=== PATIENT | female | born 1980 | race Caucasian/White ===

== ENCOUNTER 2017-01-30 10:08 | Emergency (ER) | payer OTHER ==
[2017-01-30 10:19] VITALS: RESP 18
[2017-01-30] MEDS ORDERED: SODIUM CHLORIDE 0.9% 1,000 ML IV STA (10:29)
[2017-01-30] MEDS ORDERED: METOCLOPRAMIDE 5 MG/ML 2 ML VIAL IVP STA (10:29)
[2017-01-30] MEDS ORDERED: MECLIZINE 12.5 MG TAB PO STA (10:30)
--- NOTE | 2017-01-30 10:33 | ED ---
Dizziness HPI - General Chief Complaint: Dizziness Stated Complaint: dizzy-19 wks preg Time Seen by Provider: 01/30/17 10:22 Source: patient, RN notes reviewed Mode of arrival: ambulatory Limitations: no limitations - History of Present Illness Initial Comments: 36-year-old female presents to the emergency department with a chief complaint of dizziness. Patient states since Sunday she's had this dizziness. Patient states it almost feels as if she is drunk. Patient states just a focus to concentrate on things in order for them not to be moving in her line of vision. Patient states that certain movements will make it worse. Patient states that she breasts somewhat improves but she starting getting so tired of all the focusing she has to do to make her symptoms better. Patient states there is no falls traumas or injuries. Patient denies any history of this in the past. Patient is 19 weeks . Patient states that she was concerned due to the continued dizziness so she thought that she should be evaluated.Patient denies any recent fever, chills, shortness of breath, chest pain, back pain, abdominal pain, nausea vomiting, numbness or tingling, dysuria or hematuria, constipation or diarrhea, headaches or visual changes, or any other current symptoms. - Related Data Home Medications Medication Instructions Recorded Confirmed Aspirin EC [Ecotrin Low Dose] 81 mg PO DAILY 01/30/17 01/30/17 Methyldopa 500 mg PO BID 01/30/17 01/30/17 Multi Chew No Iodine 2 tab PO DAILY 01/30/17 01/30/17 Previous Rx's Medication Instructions Recorded Meclizine [Antivert] 12.5 mg PO Q6H #20 tablet 01/30/17 Allergies Allergy/AdvReac Type Severity Reaction Status Date / Time amoxicillin [From Augmentin] Allergy Unknown Verified 01/30/17 10:30 clavulanic acid Allergy Unknown Verified 01/30/17 10:30 [From Augmentin] fish oil Allergy Unknown Verified 01/30/17 10:30 iodine Allergy Unknown Verified 01/30/17 10:30 povidone-iodine Allergy Unknown Verified 01/30/17 10:30 [From Betadine] shellfish derived [Shellfish] Allergy Unknown Verified 01/30/17 10:30 soap [From Betadine] Allergy Unknown Verified 01/30/17 10:30 Review of Systems ROS Statement: Those systems with pertinent positive or pertinent negative responses have been documented in the HPI. ROS Other: All systems not noted in ROS Statement are negative. Past Medical History Additional Past Medical History / Comment(s): HTN WITH History of Any Multi-Drug Resistant Organisms: None Reported Past Surgical History: Cholecystectomy Additional Past Surgical History / Comment(s): ORAL SURGERY, LAPROSCOPIC CYSTS REMOVAL FROM OVARIES Smoking Status: Never smoker Past Alcohol Use History: None Reported Past Drug Use History: None Reported General Exam - General Exam Comments Initial Comments: General: The patient is awake and alert, in no distress, and does not appear acutely ill. Eye: Pupils are equal, round and reactive to light, extra-ocular movements are intact; there is normal conjunctiva bilaterally. No signs of icterus. Ears, nose, mouth and throat: There are moist mucous membranes and no oral lesions. Neck: The neck is supple, there is no tenderness. Cardiovascular: There is a regular rate and rhythm. No murmur, rub or gallop is appreciated. Respiratory: Lungs are clear to auscultation, respirations are non-labored, breath sounds are equal. No wheezes, stridor, rales, or rhonchi. Gastrointestinal: Soft, non-distended, non-tender abdomen without masses or organomegaly noted. There is no rebound or guarding present. No CVA tenderness. Bowel sounds are unremarkable. Back: There is no tenderness to palpation in the midline. There is no obvious deformity. No rashes noted. Musculoskeletal: Normal ROM, no tenderness, There is no pedal edema. There is no calf tenderness or swelling. Sensation intact. Pulses equal bilaterally 2+. Neurological: CN II-XII intact, There are no obvious motor or sensory deficits. Coordination appears grossly intact. Speech is normal. No ataxia, normal [id number], left Skin: Skin is warm and dry and no rashes or lesions are noted. Psychiatric: Cooperative, appropriate mood & affect, normal judgment. Limitations: no limitations Course Vital Signs 01/30/17 01/30/17 10:14 12:00 Temperature 97.4 F L Pulse Rate 93 83 Respiratory 18 18 Rate Blood Pressure 135/92 157/90 O2 Sat by Pulse 98 99 Oximetry Medical Decision Making - Medical Decision Making 36 bills male presents emergency Department what appears to be vertigo. At this time patient was given fluids and Antivert and has had improvement in his symptoms. heart tones are monitored and normal. At this time we did discuss that we will patient and her home which is category B. We discussed close follow-up with [employer] and return parameters. We discussed all the patient 's questions. She stated that she understood and she is in agreement with the plan. Stent she will be discharged home. - Lab Data Result diagrams: 01/30/17 10:45 01/30/17 10:45 Lab Results 01/30/17 01/30/17 01/30/17 Range/Units 10:45 10:45 11:55 WBC 10.4 (3.8-10.6) k/uL RBC 4.03 (3.80-5.40) m/uL Hgb 12.8 (11.4-16.0) gm/dL Hct 36.0 (34.0-46.0) % MCV 89.5 (80.0-100.0) fL MCH 31.7 (25.0-35.0) pg MCHC 35.5 (31.0-37.0) g/dL RDW 13.7 (11.5-15.5) % Plt Count 209 (150-450) k/uL Neutrophils % 79 % Lymphocytes % 13 % Monocytes % 5 % Eosinophils % 1 % Basophils % 0 % Neutrophils # 8.2 H (1.3-7.7) k/uL Lymphocytes # 1.4 (1.0-4.8) k/uL Monocytes # 0.5 (0-1.0) k/uL Eosinophils # 0.1 (0-0.7) k/uL Basophils # 0.0 (0-0.2) k/uL Sodium 137 (137-145) mmol/L Potassium 3.9 (3.5-5.1) mmol/L Chloride 105 (98-107) mmol/L Carbon Dioxide 21 L (22-30) mmol/L Anion Gap 11 mmol/L BUN 8 (7-17) mg/dL Creatinine 0.42 L (0.52-1.04) mg/dL Est GFR (MDRD) Af Amer >60 (>60 ml/min/1.73 sqM) Est GFR (MDRD) Non-Af >60 (>60 ml/min/1.73 sqM) Glucose 84 (74-99) mg/dL Calcium 9.8 (8.4-10.2) mg/dL Total Bilirubin 0.4 (0.2-1.3) mg/dL AST 34 (14-36) U/L ALT 42 (9-52) U/L Alkaline Phosphatase 56 (38-126) U/L Total Protein 7.0 (6.3-8.2) g/dL Albumin 3.8 (3.5-5.0) g/dL Urine Color Yellow Urine Appearance Cloudy H (Clear) Urine pH 5.5 (5.0-8.0) Ur Specific [place] 1.020 (1.001-1.035) Urine Protein Trace H (Negative) Urine Glucose (UA) Negative (Negative) Urine Ketones 1+ H (Negative) Urine Blood Negative (Negative) Urine Nitrite Negative (Negative) Urine Bilirubin Negative (Negative) Urine Urobilinogen <2.0 (<2.0) mg/dL Ur Leukocyte Esterase Large H (Negative) Urine WBC 32 H (0-5) /hpf Ur Squamous Epith Cells 13 H (0-4) /hpf Urine Bacteria Rare H (None) /hpf Urine Mucus Occasional H (None) /hpf Disposition Clinical Impression: Vertigo Disposition: HOME SELF-CARE Condition: Stable Instructions: Vertigo (ED) Additional Instructions: Please use medication as discussed. Please follow up with family doctor if symptoms have not improved over the next two days. Please return to the emergency room if your symptoms increase or worsen or for any other concerns. Prescriptions: Meclizine [Antivert] 12.5 mg PO Q6H #20 tablet Referrals: Jose Paredes DO [Primary Care Provider] - 1-2 days Time of Disposition: 12:37
[2017-01-30 11:14] LABS: Basophils % (A) 0 %; CH 31.4; CHCM 35.3; Eosinophils # (A) 0.1 k/uL (0-0.7); Eosinophils % (A) 1 %; HDW 3.02; HGB 12.8 gm/dL (11.4-16.0); Luc # (Auto) 0.17; Luc % (Auto) 2; Lymphocytes # (A) 1.4 k/uL (1.0-4.8); Lymphocytes % (A) 13 %; MCH 31.7 pg (25.0-35.0); MCHC 35.5 g/dL (31.0-37.0); MCV 89.5 fL (80.0-100.0); Mean Platelet Volume 7.7; Monocytes # (A) 0.5 k/uL (0-1.0); Monocytes % (A) 5 %; Neutrophils # (A) 8.2 k/uL (1.3-7.7); Neutrophils % (A) 79 %; RBC 4.03 m/uL (3.80-5.40); RDW 13.7 % (11.5-15.5); WBC 10.4 k/uL (3.8-10.6); WBC (Perox) 10.78
[2017-01-30 11:29] LABS: ALT 42 U/L (9-52); AST 34 U/L (14-36); Alkaline Phosphatase 56 U/L (38-126); Anion Gap 11 mmol/L; Blood Urea Nitrogen 8 mg/dL (7-17); Calcium 9.8 mg/dL (8.4-10.2); Carbon Dioxide 21 mmol/L (22-30); Chloride 105 mmol/L (98-107); Glucose 84 mg/dL (74-99); Non-African American GFR(MDRD) >60 (>60 ml/min/1.73 sqM); Potassium 3.9 mmol/L (3.5-5.1); Sodium 137 mmol/L (137-145); Total Bilirubin 0.4 mg/dL (0.2-1.3)
[2017-01-30 12:29] LABS: Appearance,Urine Cloudy (Clear); Bacteria,Urine Rare /hpf; Bilirubin,Urine Negative (Negative); Glucose,Urine (UA) Negative (Negative); Ketones,Urine 1+ (Negative); Leukocyte Esterase,Urine Large (Negative); Mucus,Urine Occasional /hpf; Nitrite,Urine Negative (Negative); PH, Urine 5.5 (5.0-8.0); Particle Count 16042; Protein,Urine Trace (Negative); Squamous Epithelial Cell,Urine 13 /hpf (0-4); UA Billing (MACRO vs. MICRO) MICRO; Urobilinogen,Urine <2.0 mg/dL (<2.0); WBC,Urine 32 /hpf (0-5)
[2017-01-30 12:47] VITALS: BP 144/98; PULSE 84; TEMP 97.6
== END 2017-01-30 12:51 | disposition home or self-care (01) ==
LOC: EC 10:08
DX: O99.89 Other specified diseases and conditions complicating pregnancy, childbirth and the puerperium (principal); R42 Dizziness and giddiness; O16.2 Unspecified maternal hypertension, second trimester; Z3A.19 19 weeks gestation of pregnancy; Z79.82 Long term (current) use of aspirin; Z79.899 Other long term (current) drug therapy; Z88.0 Allergy status to penicillin; Z91.048 Other nonmedicinal substance allergy status; Z91.013 Allergy to seafood; Z91.09 Other allergy status, other than to drugs and biological substances
CPT/HCPCS: 99284; 96374; 96361; 36415; 80053; 85025; 81001; 87086; J2765

== ENCOUNTER 2017-02-15 20:45 | Emergency (ER) | payer OTHER ==
[2017-02-15] MEDS ORDERED: hydrALAZINE HCL 20 MG/ML 1 ML VIAL IVP STA ×2 (21:10→23:37)
[2017-02-15 21:23] LABS: Basophils % (A) 0 %; CH 31.8; CHCM 35.8; Eosinophils # (A) 0.1 k/uL (0-0.7); Eosinophils % (A) 1 %; HCT 37.3 % (34.0-46.0); HDW 3.02; HGB 13.1 gm/dL (11.4-16.0); Luc # (Auto) 0.22; Luc % (Auto) 2; Lymphocytes # (A) 1.9 k/uL (1.0-4.8); Lymphocytes % (A) 15 %; MCH 31.5 pg (25.0-35.0); MCHC 35.2 g/dL (31.0-37.0); MCV 89.4 fL (80.0-100.0); Mean Platelet Volume 7.7; Monocytes # (A) 0.6 k/uL (0-1.0); Monocytes % (A) 4 %; Neutrophils # (A) 10.2 k/uL (1.3-7.7); Neutrophils % (A) 78 %; RBC 4.18 m/uL (3.80-5.40); RDW 13.6 % (11.5-15.5); WBC 13.1 k/uL (3.8-10.6); WBC (Perox) 13.14
--- NOTE | 2017-02-15 21:23 | ED ---
Chest Pain HPI - General Chief Complaint: Chest Pain Stated Complaint: Chest Pain-Revisit Time Seen by Provider: 02/15/17 21:07 Source: patient Mode of arrival: wheelchair Limitations: no limitations - History of Present Illness Initial Comments: 's patient is a 36-year-old woman, who states that she is proximal 21 weeks , who presents to be a value for substernal chest pain. Patient states that she was sitting and watching a practice nurse presentation, when she noticed she was developing the pain. She describes it as constant, moderately severe, aching. She has not noted anything that makes it get better or worse. She has not had any associated symptoms, other than feeling somewhat anxious. Patient states that she has been in emergency departments twice already this week because her blood pressure has been high. She was initially started on the medication she does not recall name of but returned because of the side effects and was started on labetalol. She states that that also gave her side effects so she went back yesterday and was given what appears to be nifedipine, however she states her blood pressure was high when she took it and it has not come down. Her blood pressure was 160/110 at home. MD Complaint: chest pain Onset/Timin -: hour(s) Onset: during rest Pain Location: substernal Pain Radiation: none Severity: moderate Quality: tightness Consistency: constant Improves With: nothing Worsens With: nothing Treatments Prior to Arrival: aspirin - Related Data Home Medications Medication Instructions Recorded Confirmed Aspirin EC [Ecotrin Low Dose] 81 mg PO HS 01/30/17 02/15/17 Multi Chew No Iodine 2 tab PO HS 01/30/17 02/15/17 NIFEdipine XL [Procardia Xl] 60 mg PO DAILY 02/15/17 02/15/17 Allergies Allergy/AdvReac Type Severity Reaction Status Date / Time amoxicillin [From Augmentin] Allergy Anaphylaxis Verified 02/15/17 21:08 clavulanic acid Allergy Anaphylaxis Verified 02/15/17 21:08 [From Augmentin] fish oil Allergy Anaphylaxis Verified 02/15/17 21:08 iodine Allergy Anaphylaxis Verified 02/15/17 21:08 povidone-iodine Allergy Anaphylaxis Verified 02/15/17 21:08 [From Betadine] shellfish derived [Shellfish] Allergy Anaphylaxis Verified 02/15/17 21:08 soap [From Betadine] Allergy Anaphylaxis Verified 02/15/17 21:08 Review of Systems ROS Statement: Those systems with pertinent positive or pertinent negative responses have been documented in the HPI. ROS Other: All systems not noted in ROS Statement are negative. Constitutional: Denies: fever, chills, weakness Eyes: Denies: vision change Respiratory: Denies: cough, dyspnea, wheezes Cardiovascular: Reports: as per HPI, chest pain. Denies: palpitations, orthopnea, edema, syncope Gastrointestinal: Denies: abdominal pain, nausea, vomiting, melena, hematochezia Genitourinary: Denies: dysuria, frequency, hematuria Musculoskeletal: Denies: back pain Skin: Denies: rash Neurological: Denies: headache, weakness, numbness Psychiatric: Reports: anxiety EKG Findings - EKG Results: EKG: interpreted by LOTTIE, sinus rhythm, normal axis, normal QRS, normal ST/T, no acute changes EKG shows: tachycardia (Rate approximately 119 bpm) Past Medical History Additional Past Medical History / Comment(s): HTN WITH History of Any Multi-Drug Resistant Organisms: None Reported Past Surgical History: Cholecystectomy Additional Past Surgical History / Comment(s): ORAL SURGERY, LAPROSCOPIC CYSTS REMOVAL FROM OVARIES Smoking Status: Never smoker Past Alcohol Use History: None Reported Past Drug Use History: None Reported General Exam Limitations: no limitations General appearance: alert, in no apparent distress, anxious Head exam: Present: atraumatic, normocephalic Eye exam: Present: normal appearance. Absent: scleral icterus, conjunctival injection ENT exam: Present: normal oropharynx Neck exam: Present: normal inspection Respiratory exam: Present: normal lung sounds bilaterally. Absent: respiratory distress, wheezes, rales, rhonchi, stridor Cardiovascular Exam: Present: normal rhythm, tachycardia, normal heart sounds. Absent: systolic murmur, diastolic murmur, rubs, gallop GI/Abdominal exam: Present: soft, other (Gravid uterus palpable to just above the umbilicus.). Absent: distended, tenderness, guarding, rebound, mass Extremities exam: Present: normal inspection, normal capillary refill. Absent: pedal edema, calf tenderness Back exam: Present: normal inspection. Absent: CVA tenderness (R), CVA tenderness (L) Neurological exam: Present: alert Psychiatric exam: Present: anxious Skin exam: Present: warm, dry, intact, normal color. Absent: rash Course Vital Signs 04/27/17 04/27/17 04/27/17 20:47 21:10 21:12 Temperature 99.0 F Pulse Rate 121 H 120 H Pulse Rate [ 120 H Manager Of It ] Respiratory 22 20 Rate Blood Pressure 183/100 174/114 O2 Sat by Pulse 96 96 Oximetry 02/15/17 02/15/17 02/15/17 21:26 22:56 23:19 Temperature Pulse Rate 114 H 106 H 103 H Pulse Rate [ Manager Of It ] Respiratory 20 20 18 Rate Blood Pressure 144/92 159/101 146/96 O2 Sat by Pulse 99 97 99 Oximetry 02/16/17 02/16/17 02/16/17 00:42 01:49 02:10 Temperature 98.0 F Pulse Rate 117 H 109 H Pulse Rate [ Manager Of It ] Respiratory 18 18 Rate Blood Pressure 150/89 132/82 O2 Sat by Pulse 97 98 Oximetry Chest Pain MDM - MDM This patient is 36-year-old woman with 21 week , complicated by hypertension. She presents with acute onset of substernal chest pain that radiates to her back and also worse with deep breath. The screening d-dimer is positive and after sure decision making, patient would like to have the computed tomography scan to rule out a PE. This is negative. The patient is feeling better following antihypertensives. Her blood pressure was down. The remainder of her workup is negative, there is no protein in the urine. Following the workup, patient is feeling better and would like to go home, and she will follow up with her airport shuttle driver, Dr. Pratt. We discussed return parameters and she will return immediately if there is any worsening. Disposition Clinical Impression: Chest pain, Hypertension affecting Disposition: HOME SELF-CARE Condition: Good Instructions: Chest Pain (ED) Referrals: Jose Paredes DO [Primary Care Provider] - 1-2 days
[2017-02-15 21:34] LABS: ALT 29 U/L (9-52); AST 27 U/L (14-36); Alkaline Phosphatase 70 U/L (38-126); Anion Gap 13 mmol/L; Blood Urea Nitrogen 9 mg/dL (7-17); Calcium 9.9 mg/dL (8.4-10.2); Carbon Dioxide 20 mmol/L (22-30); Chloride 106 mmol/L (98-107); Glucose 108 mg/dL (74-99); Magnesium 1.7 mg/dL (1.6-2.3); Non-African American GFR(MDRD) >60 (>60 ml/min/1.73 sqM); Potassium 3.7 mmol/L (3.5-5.1); Sodium 139 mmol/L (137-145); Total Bilirubin 0.4 mg/dL (0.2-1.3); Total Protein 7.3 g/dL (6.3-8.2); Uric Acid 4.9 mg/dL (3.7-7.4)
--- NOTE | 2017-02-15 22:01 | XR ---
EXAMINATION TYPE: XR chest 1V portable DATE OF EXAM: 02/15/2017 9:46 PM COMPARISON: NONE INDICATION: Pain, chest pain and difficulty in breathing TECHNIQUE: Single frontal view of the chest is obtained. FINDINGS: The heart size is normal. The pulmonary vasculature is normal. The lungs are clear. IMPRESSION: 1. No acute pulmonary process.
[2017-02-15] MEDS ORDERED: ACETAMINOPHEN TAB 325 MG TAB PO STA (22:07)
--- NOTE | 2017-02-15 22:54 | US ---
INDICATION: shortness of breath, chest pain TECHNIQUE: The bilateral lower extremity deep venous system is examined utilizing real time linear array sonography with graded compression, doppler sonography and color-flow sonography. COMPARISON: None. FINDINGS: Normal compressibility is demonstrated from the common femoral vein to the popliteal vein bilaterally. There is normal color flow signal and normal spectral waveforms. Normal spontaneous phasic flow is noted. IMPRESSION: No evidence of deep venous thrombosis.
[2017-02-15 23:20] VITALS: RESP 18
[2017-02-15] MEDS ORDERED: MAG HYDROX/AL HYDROX/SIMETH 30 ML CUP PO PRN (23:41)
[2017-02-15] MEDS ORDERED: LIDOCAINE VISCOUS 300 MG/15 ML CUP MUCOUS MEM ONE (23:41)
[2017-02-16] MEDS ORDERED: methylPREDNISolone SOD SUCCI 125 MG/2 ML VIAL IV STA (00:09)
[2017-02-16] MEDS ORDERED: FAMOTIDINE 20 MG/2 ML VIAL IV STA (00:10)
[2017-02-16] MEDS ORDERED: RX INFO: IV CONTRAST WAS GIVEN 1 EACH MISC MISCELLANE PRN (00:10)
[2017-02-16] MEDS ORDERED: diphenhydrAMINE 50 MG/ML 1 ML VIAL IVP STA (00:10)
[2017-02-16 00:35] LABS: Appearance,Urine Clear (Clear); Bacteria,Urine Rare /hpf; Bilirubin,Urine Negative (Negative); Glucose,Urine (UA) Negative (Negative); Ketones,Urine 2+ (Negative); Leukocyte Esterase,Urine Moderate (Negative); Mucus,Urine Rare /hpf; Nitrite,Urine Negative (Negative); PH, Urine 5.5 (5.0-8.0); Particle Count 2463; Protein,Urine Negative (Negative); RBC,Urine 1 /hpf (0-5); Specific Gravity,Urine 1.011 (1.001-1.035); Squamous Epithelial Cell,Urine 4 /hpf (0-4); UA Billing (MACRO vs. MICRO) MICRO; Urobilinogen,Urine <2.0 mg/dL (<2.0); WBC,Urine 10 /hpf (0-5)
--- NOTE | 2017-02-16 01:31 | CT ---
INDICATION: Chest pain, evaluate for pulmonary embolism. TECHNIQUE: CT acquisition was performed through the chest per institutional CT angiogram protocol following the administration of IV contrast. Coronal and sagittal reformatted images and coronal and sagittal MIP reconstructed images were provided. This CT exam was performed using one or more of the following dose reduction techniques: automated exposure control, adjustment of the mA and/or kV according to patient size, and/or use of iterative reconstruction technique. DOSIMETRY: CTDIvol 64.90 mGy; DLP 337.60 mGy-cm COMPARISON: CXR 02/15/17 FINDINGS: There is no evidence of acute pulmonary embolism. Mild enlargement of the main pulmonary artery measuring 33 mm 6 chest pulmonary arterial hypertension. Thoracic aorta is normal in caliber. Heart size is normal and there is no pericardial effusion. Small multicompartment mediastinal lymph nodes are not significant by size criteria. Diffuse groundglass attenuation of the lung parenchyma likely is secondary to image acquisition during expiration. There is no consolidation, effusion, or pneumothorax. The visualized upper abdomen is unremarkable. There are no acute osseous findings. IMPRESSION: 1. No evidence of acute pulmonary embolism. 2. Mildly enlarged main pulmonary artery suggesting pulmonary arterial hypertension.
[2017-02-16 01:49] VITALS: BP 132/82; PULSE 109
[2017-02-16 02:11] VITALS: TEMP 98
== END 2017-02-16 02:11 | disposition home or self-care (01) ==
LOC: EC 20:45
DX: O99.89 Other specified diseases and conditions complicating pregnancy, childbirth and the puerperium (principal); R07.2 Precordial pain; O16.2 Unspecified maternal hypertension, second trimester; Z3A.21 21 weeks gestation of pregnancy; Z79.82 Long term (current) use of aspirin; Z79.899 Other long term (current) drug therapy; Z88.0 Allergy status to penicillin; Z91.013 Allergy to seafood; Z91.048 Other nonmedicinal substance allergy status; Z88.8 Allergy status to other drugs, medicaments and biological substances
CPT/HCPCS: 99285; 96374; 96375 ×3; 96376; 36415; 93005; 85379; 80053; 83735; 84550; 84484; 85025; 81001; 71010; 93970; 71275; J0360; J1200; J2930; Q9967

== ENCOUNTER 2017-10-18 13:47 | Emergency (ER) | payer OTHER ==
[2017-10-18 14:06] VITALS: RESP 18
[2017-10-18] MEDS ORDERED: KETOROLAC 30 MG/ML 1 ML VIAL IVP STA (14:33)
[2017-10-18] MEDS ORDERED: SODIUM CHLORIDE 0.9% 1,000 ML IV ONE ×2 (14:33→16:05)
--- NOTE | 2017-10-18 15:31 | XR ---
EXAMINATION TYPE: XR chest 2V DATE OF EXAM: 10/18/2017 COMPARISON: 02/15/2017 INDICATION: Cough headache TECHNIQUE: Frontal and lateral views of the chest are obtained. FINDINGS: The heart size is normal. The pulmonary vasculature is normal. The lungs are clear. IMPRESSION: 1. No acute pulmonary process.
--- NOTE | 2017-10-18 15:55 | ED ---
URI HPI - General Chief Complaint: Upper Respiratory Infection Stated Complaint: High BP-sent by [facility] Time Seen by Provider: 10/18/17 14:32 Source: patient Mode of arrival: ambulatory Limitations: no limitations - History of Present Illness Initial Comments: 36-year-old female who is 4 months presenting for evaluation of URI symptoms and hypertension. She states that she's been having the cough with subjective fevers and chills as well as myalgias and arthralgias for the last few days and that everyone else in her household has similar symptoms. She went to an urgent care for evaluation and was noted to be hypertensive and immediately sent to the ED for further treatment and evaluation. She denies headache, chest pain, lightheadedness, dizziness. - Related Data Home Medications Medication Instructions Recorded Confirmed Metoprolol Tartrate [Lopressor] 100 mg PO HS 10/18/17 10/18/17 Allergies Allergy/AdvReac Type Severity Reaction Status Date / Time amoxicillin [From Augmentin] Allergy Anaphylaxis Verified 10/18/17 14:29 clavulanic acid Allergy Anaphylaxis Verified 10/18/17 14:29 [From Augmentin] fish oil Allergy Anaphylaxis Verified 10/18/17 14:29 iodine Allergy Anaphylaxis Verified 10/18/17 14:29 povidone-iodine Allergy Anaphylaxis Verified 10/18/17 14:29 [From Betadine] shellfish derived [Shellfish] Allergy Anaphylaxis Verified 10/18/17 14:29 soap [From Betadine] Allergy Anaphylaxis Verified 10/18/17 14:29 Review of Systems ROS Statement: Those systems with pertinent positive or pertinent negative responses have been documented in the HPI. ROS Other: All systems not noted in ROS Statement are negative. Constitutional: Reports: fever, chills Eyes: Denies: eye pain, eye discharge ENT: Denies: ear pain, throat pain, dental pain Respiratory: Reports: cough. Denies: dyspnea, wheezes Cardiovascular: Denies: chest pain, palpitations, dyspnea on exertion, syncope Endocrine: Reports: fatigue. Denies: polydipsia, polyuria Gastrointestinal: Denies: abdominal pain, nausea, vomiting, diarrhea, constipation, melena Genitourinary: Denies: urgency, dysuria Musculoskeletal: Reports: arthralgia, myalgia. Denies: back pain Skin: Denies: rash, lesions Neurological: Denies: headache, weakness, numbness, paresthesias Psychiatric: Denies: anxiety, depression Hematological/Lymphatic: Denies: easy bleeding, easy bruising Past Medical History Past Medical History: Hypertension Additional Past Medical History / Comment(s): HTN, Gestational DM, WITH History of Any Multi-Drug Resistant Organisms: None Reported Past Surgical History: Cholecystectomy, Tubal Ligation Additional Past Surgical History / Comment(s): ORAL SURGERY, LAPROSCOPIC CYSTS REMOVAL FROM OVARIES Past Psychological History: No Psychological Hx Reported Smoking Status: Never smoker Past Alcohol Use History: None Reported Past Drug Use History: None Reported General Exam Limitations: no limitations General appearance: alert, in no apparent distress Head exam: Present: atraumatic, normocephalic, normal inspection Eye exam: Present: normal appearance, PERRL, EOMI. Absent: scleral icterus, conjunctival injection, periorbital swelling ENT exam: Present: normal exam, mucous membranes moist Neck exam: Present: normal inspection. Absent: tenderness, meningismus, lymphadenopathy Respiratory exam: Present: normal lung sounds bilaterally. Absent: respiratory distress, wheezes, rales, rhonchi, stridor Cardiovascular Exam: Present: normal rhythm, tachycardia GI/Abdominal exam: Present: soft, normal bowel sounds. Absent: distended, tenderness, guarding, rebound, rigid Rectal exam: Present: deferred Extremities exam: Present: normal inspection, full ROM, normal capillary refill. Absent: tenderness, pedal edema, joint swelling, calf tenderness Back exam: Present: normal inspection Neurological exam: Present: alert, oriented X3, CN II-XII intact Psychiatric exam: Present: normal affect, normal mood Skin exam: Present: warm, dry, intact, normal color. Absent: rash Course Vital Signs 10/18/17 10/18/17 10/18/17 14:02 15:06 15:13 Temperature 99.1 F Pulse Rate 131 H 131 H 129 H Respiratory 18 18 18 Rate Blood Pressure 175/98 157/106 166/79 O2 Sat by Pulse 98 96 96 Oximetry 10/18/17 10/18/17 10/18/17 16:49 17:27 18:56 Temperature 97.8 F Pulse Rate 106 H 100 87 Respiratory 18 18 18 Rate Blood Pressure 152/97 165/93 165/102 O2 Sat by Pulse 96 96 98 Oximetry Medical Decision Making - Medical Decision Making 86-year-old female presenting for evaluation of URI. Heroin in her household has similar symptoms as well. Patient was seen at the urgent care prior to coming to the ED and was sent here for hypertension. On physical examination she does have mildly elevated blood pressure however she is significantly tachycardic. Influenza swab was negative and chest x-ray revealed no abnormalities. Patient was reevaluated and continued be tachycardic. D-dimer and other labs ordered and there was an elevated d-dimer. CT PE revealed no acute abnormalities including negative for pulmonary embolism. Patient was reevaluated and had improvement in heart rate. She was informed of all results and through shared decision making it was determined that should be discharged with instructions follow up with her primary care physician but to return to this facility if her symptoms should worsen or persist. The patient acknowledged an understanding of all information provided and agreed with this plan of care. - Lab Data Result diagrams: 10/18/17 16:22 10/18/17 16:22 Lab Results 10/18/17 10/18/17 10/18/17 Range/Units 15:06 16:22 16:22 WBC 5.0 (3.8-10.6) k/uL RBC 4.61 (3.80-5.40) m/uL Hgb 14.0 (11.4-16.0) gm/dL Hct 41.6 (34.0-46.0) % MCV 90.2 (80.0-100.0) fL MCH 30.4 (25.0-35.0) pg MCHC 33.7 (31.0-37.0) g/dL RDW 13.8 (11.5-15.5) % Plt Count 221 (150-450) k/uL Neutrophils % 64 % Lymphocytes % 23 % Monocytes % 8 % Eosinophils % 1 % Basophils % 1 % Neutrophils # 3.2 (1.3-7.7) k/uL Lymphocytes # 1.1 (1.0-4.8) k/uL Monocytes # 0.4 (0-1.0) k/uL Eosinophils # 0.1 (0-0.7) k/uL Basophils # 0.0 (0-0.2) k/uL D-Dimer (<0.60) mg/L FEU Sodium 142 (137-145) mmol/L Potassium 4.0 (3.5-5.1) mmol/L Chloride 110 H (98-107) mmol/L Carbon Dioxide 22 (22-30) mmol/L Anion Gap 10 mmol/L BUN 12 (7-17) mg/dL Creatinine 0.61 (0.52-1.04) mg/dL Est GFR (MDRD) Af Amer >60 (>60 ml/min/1.73 sqM) Est GFR (MDRD) Non-Af >60 (>60 ml/min/1.73 sqM) Glucose 126 H (74-99) mg/dL Calcium 9.1 (8.4-10.2) mg/dL Influenza Type A RNA Not Detected (Not Detectd) Influenza Type B (PCR) Not Detected (Not Detectd) 10/18/17 Range/Units 16:44 WBC (3.8-10.6) k/uL RBC (3.80-5.40) m/uL Hgb (11.4-16.0) gm/dL Hct (34.0-46.0) % MCV (80.0-100.0) fL MCH (25.0-35.0) pg MCHC (31.0-37.0) g/dL RDW (11.5-15.5) % Plt Count (150-450) k/uL Neutrophils % % Lymphocytes % % Monocytes % % Eosinophils % % Basophils % % Neutrophils # (1.3-7.7) k/uL Lymphocytes # (1.0-4.8) k/uL Monocytes # (0-1.0) k/uL Eosinophils # (0-0.7) k/uL Basophils # (0-0.2) k/uL D-Dimer 0.76 H (<0.60) mg/L FEU Sodium (137-145) mmol/L Potassium (3.5-5.1) mmol/L Chloride (98-107) mmol/L Carbon Dioxide (22-30) mmol/L Anion Gap mmol/L BUN (7-17) mg/dL Creatinine (0.52-1.04) mg/dL Est GFR (MDRD) Af Amer (>60 ml/min/1.73 sqM) Est GFR (MDRD) Non-Af (>60 ml/min/1.73 sqM) Glucose (74-99) mg/dL Calcium (8.4-10.2) mg/dL Influenza Type A RNA (Not Detectd) Influenza Type B (PCR) (Not Detectd) Disposition Clinical Impression: Upper respiratory infection, Hypertension Disposition: HOME SELF-CARE Condition: Stable Instructions: Upper Respiratory Infection (ED) Additional Instructions: Please use medication as discussed. Please follow up with family doctor if symptoms have not improved over the next two days. Please return to the emergency room if your symptoms increase or worsen or for any other concerns. Referrals: Jose Paredes DO [Primary Care Provider] - 1-2 days Time of Disposition: 18:44
[2017-10-18 16:30] LABS: Basophils % (A) 1 %; CH 31.1; CHCM 34.7; Eosinophils # (A) 0.1 k/uL (0-0.7); Eosinophils % (A) 1 %; HCT 41.6 % (34.0-46.0); HDW 2.82; Luc # (Auto) 0.15; Luc % (Auto) 3; Lymphocytes # (A) 1.1 k/uL (1.0-4.8); Lymphocytes % (A) 23 %; MCH 30.4 pg (25.0-35.0); MCHC 33.7 g/dL (31.0-37.0); MCV 90.2 fL (80.0-100.0); Mean Platelet Volume 7.8; Monocytes # (A) 0.4 k/uL (0-1.0); Monocytes % (A) 8 %; Neutrophils # (A) 3.2 k/uL (1.3-7.7); Neutrophils % (A) 64 %; RBC 4.61 m/uL (3.80-5.40); RDW 13.8 % (11.5-15.5); WBC (Perox) 4.98
[2017-10-18 16:47] LABS: Anion Gap 10 mmol/L; Blood Urea Nitrogen 12 mg/dL (7-17); Calcium 9.1 mg/dL (8.4-10.2); Carbon Dioxide 22 mmol/L (22-30); Chloride 110 mmol/L (98-107); Glucose 126 mg/dL (74-99); Non-African American GFR(MDRD) >60 (>60 ml/min/1.73 sqM); Sodium 142 mmol/L (137-145)
[2017-10-18] MEDS ORDERED: methylPREDNISolone SOD SUCCI 125 MG/2 ML VIAL IV STA (17:14)
[2017-10-18] MEDS ORDERED: RX INFO: IV CONTRAST WAS GIVEN 1 EACH MISC MISCELLANE PRN (17:15)
[2017-10-18] MEDS ORDERED: diphenhydrAMINE 50 MG/ML 1 ML VIAL IVP STA (17:15)
[2017-10-18] MEDS ORDERED: FAMOTIDINE 20 MG/2 ML VIAL IV STA (17:15)
--- NOTE | 2017-10-18 18:26 | CT ---
EXAMINATION TYPE: CT chest angio for PE DATE OF EXAM: 10/18/2017 COMPARISON: 02/16/2017 HISTORY: Tachycardia and hypertension today. CT DLP: 634 mGycm. Automated exposure control for dose reduction was used. CONTRAST: CT Chest for pulmonary embolism performed with with IV Contrast, patient injected with 100m l mL of Omnipaque 350. FINDINGS: LUNGS: The lungs are grossly clear, there is no concerning parenchymal mass or nodule identified. T here is no pleural effusion or pneumothorax seen. The tracheobronchial tree is patent. MEDIASTINUM: There is satisfactory enhancement of the pulmonary artery and its branches, there is no CT evidence for pulmonary embolism. There are no greater than 1 cm hilar or mediastinal lymph nodes. There is no cardiomegaly. No pericardial effusion. OTHER: No additional significant abnormality is seen. IMPRESSION: NO ACUTE PROCESS. NO FOCAL FINDINGS.
[2017-10-18 18:58] VITALS: BP 165/102; PULSE 87; TEMP 97.8
== END 2017-10-18 19:01 | disposition home or self-care (01) ==
LOC: EC 13:47
DX: J06.9 Acute upper respiratory infection, unspecified (principal); I10 Essential (primary) hypertension; R00.0 Tachycardia, unspecified; R79.1 Abnormal coagulation profile; M79.7 Fibromyalgia; Z79.899 Other long term (current) drug therapy; Z88.0 Allergy status to penicillin; Z88.8 Allergy status to other drugs, medicaments and biological substances; Z91.013 Allergy to seafood; Z91.048 Other nonmedicinal substance allergy status
CPT/HCPCS: 36415; 85379; 80048; 85025; 87502; 71020; 71275; 99284; 96374; 96375 ×3; 96361 ×3; J1200; J2930; Q9967; J1885

== ENCOUNTER 2018-08-24 03:52 | Emergency (ER) | payer OTHER ==
[2018-08-24] MEDS ORDERED: LISINOPRIL 10 MG TAB PO STA (04:33)
[2018-08-24 05:59] LABS: Appearance,Urine Cloudy (Clear); Bacteria,Urine Rare /hpf; Bilirubin,Urine Negative (Negative); Blood,Urine Negative (Negative); Color,Urine Yellow; Glucose,Urine (UA) Negative (Negative); Ketones,Urine Negative (Negative); Leukocyte Esterase,Urine Negative (Negative); Mucus,Urine Many /hpf; Nitrite,Urine Negative (Negative); PH, Urine 5.5 (5.0-8.0); Protein,Urine 1+ (Negative); RBC,Urine 2 /hpf (0-5); Squamous Epithelial Cell,Urine 10 /hpf (0-4); WBC,Urine 4 /hpf (0-5)
[2018-08-24 06:04] LABS: Anion Gap 11 mmol/L; Blood Urea Nitrogen 16 mg/dL (7-17); Calcium 9.8 mg/dL (8.4-10.2); Carbon Dioxide 21 mmol/L (22-30); Chloride 107 mmol/L (98-107); Glucose 110 mg/dL (74-99); Sodium 139 mmol/L (137-145)
[2018-08-24 06:10] LABS: Potassium 4.5 mmol/L (3.5-5.1)
[2018-08-24] MEDS ORDERED: hydrALAZINE HCL 20 MG/ML 1 ML VIAL IVP STA (06:24)
[2018-08-24 06:31] LABS: Basophils % (A) 0 %; Eosinophils # (A) 0.1 k/uL (0-0.7); Eosinophils % (A) 1 %; HGB 14.9 gm/dL (11.4-16.0); Lymphocytes # (A) 1.9 k/uL (1.0-4.8); Lymphocytes % (A) 25 %; MCH 30.1 pg (25.0-35.0); MCHC 33.9 g/dL (31.0-37.0); MCV 88.9 fL (80.0-100.0); Mean Platelet Volume 7.7; Monocytes # (A) 0.5 k/uL (0-1.0); Monocytes % (A) 6 %; Neutrophils # (A) 5.1 k/uL (1.3-7.7); Neutrophils % (A) 66 %; Platelet Count 286 k/uL (150-450); RBC 4.96 m/uL (3.80-5.40); RDW 12.8 % (11.5-15.5); WBC 7.7 k/uL (3.8-10.6)
--- NOTE | 2018-08-24 07:30 | ED ---
Dizziness HPI - General Chief Complaint: Dizziness Stated Complaint: Hypertension/Dizziness Time Seen by Provider: 08/24/18 04:02 Source: patient Mode of arrival: wheelchair Limitations: no limitations - History of Present Illness Initial Comments: This patient is a 37-year-old woman who presents because she has been feeling dizzy or off balance. She denies any headache, vision change, ear pain or any neurologic symptoms. She did note that her blood pressure was high. No chest pain, dyspnea, or diaphoresis. MD Complaint: dizziness -: hour(s) Timing: gradual onset Description: off-balance History of Same: Yes History of Trauma: No Severity: mild Improves With: nothing Worsens With: nothing Associated Symptoms: denies other symptoms - Related Data Previous Rx's Medication Instructions Recorded Lisinopril [Zestril] 10 mg PO DAILY #30 tab 08/24/18 Allergies Allergy/AdvReac Type Severity Reaction Status Date / Time amoxicillin [From Augmentin] Allergy Anaphylaxis Verified 10/18/17 14:29 clavulanic acid Allergy Anaphylaxis Verified 10/18/17 14:29 [From Augmentin] fish oil Allergy Anaphylaxis Verified 10/18/17 14:29 iodine Allergy Anaphylaxis Verified 10/18/17 14:29 povidone-iodine Allergy Anaphylaxis Verified 10/18/17 14:29 [From Betadine] shellfish derived [Shellfish] Allergy Anaphylaxis Verified 10/18/17 14:29 soap [From Betadine] Allergy Anaphylaxis Verified 10/18/17 14:29 Review of Systems ROS Statement: Those systems with pertinent positive or pertinent negative responses have been documented in the HPI. ROS Other: All systems not noted in ROS Statement are negative. Constitutional: Denies: fever, chills Respiratory: Denies: cough, dyspnea Cardiovascular: Denies: chest pain, palpitations, syncope Gastrointestinal: Denies: abdominal pain, nausea, vomiting Musculoskeletal: Denies: back pain Skin: Denies: rash Neurological: Denies: headache, weakness, numbness, paresthesias Past Medical History Past Medical History: Hypertension Additional Past Medical History / Comment(s): HTN, Gestational DM, WITH History of Any Multi-Drug Resistant Organisms: None Reported Past Surgical History: Cholecystectomy, Tubal Ligation Additional Past Surgical History / Comment(s): ORAL SURGERY, LAPROSCOPIC CYSTS REMOVAL FROM OVARIES Past Psychological History: No Psychological Hx Reported Smoking Status: Never smoker Past Alcohol Use History: Occasional Past Drug Use History: None Reported General Exam Limitations: no limitations General appearance: alert, in no apparent distress Head exam: Present: atraumatic, normocephalic Eye exam: Present: normal appearance. Absent: scleral icterus, conjunctival injection ENT exam: Present: normal oropharynx Neck exam: Present: normal inspection, full ROM Respiratory exam: Present: normal lung sounds bilaterally. Absent: respiratory distress, wheezes, rales, rhonchi, stridor Cardiovascular Exam: Present: regular rate, normal rhythm, normal heart sounds. Absent: systolic murmur, diastolic murmur, rubs, gallop GI/Abdominal exam: Present: soft. Absent: distended, tenderness, guarding, rebound, rigid, pulsatile mass Extremities exam: Present: normal inspection, normal capillary refill. Absent: pedal edema, calf tenderness Neurological exam: Present: alert, oriented X3, CN II-XII intact, normal gait. Absent: motor sensory deficit Skin exam: Present: warm, dry, intact, normal color. Absent: rash Course Vital Signs 08/24/18 08/24/18 08/24/18 03:55 07:02 07:43 Temperature 97.9 F 97.4 F L Pulse Rate 102 H 85 89 Respiratory 20 16 18 Rate Blood Pressure 182/111 143/97 143/91 O2 Sat by Pulse 95 97 95 Oximetry EKG Findings - EKG Results: EKG: interpreted by KRUPA TAFOYA, sinus rhythm, normal axis, normal QRS, normal ST/ T, no acute changes - SC, Pacemaker, Normal: Normal tracing: normal tracing Medical Decision Making - Medical Decision Making Additional history revealed that the patient had been out of her antihypertensive. Will prescribe refill this and patient will follow-up with her physician. Discussed return parameters and appropriate follow-up. - Lab Data Result diagrams: 08/24/18 06:07 08/24/18 05:05 Lab Results 08/24/18 08/24/18 08/24/18 Range/Units 05:05 05:05 05:05 WBC (3.8-10.6) k/uL RBC (3.80-5.40) m/uL Hgb (11.4-16.0) gm/dL Hct (34.0-46.0) % MCV (80.0-100.0) fL MCH (25.0-35.0) pg MCHC (31.0-37.0) g/dL RDW (11.5-15.5) % Plt Count (150-450) k/uL Neutrophils % % Lymphocytes % % Monocytes % % Eosinophils % % Basophils % % Neutrophils # (1.3-7.7) k/uL Lymphocytes # (1.0-4.8) k/uL Monocytes # (0-1.0) k/uL Eosinophils # (0-0.7) k/uL Basophils # (0-0.2) k/uL Sodium 139 (137-145) mmol/L Potassium 4.5 (3.5-5.1) mmol/L Chloride 107 (98-107) mmol/L Carbon Dioxide 21 L (22-30) mmol/L Anion Gap 11 mmol/L BUN 16 (7-17) mg/dL Creatinine 0.53 (0.52-1.04) mg/dL Est GFR (CKD-EPI)AfAm >90 (>60 ml/min/1.73 sqM) Est GFR (CKD-EPI)NonAf >90 (>60 ml/min/1.73 sqM) Glucose 110 H (74-99) mg/dL Calcium 9.8 (8.4-10.2) mg/dL Urine Color Yellow Urine Appearance Cloudy H (Clear) Urine pH 5.5 (5.0-8.0) Ur Specific [place] 1.030 (1.001-1.035) Urine Protein 1+ H (Negative) Urine Glucose (UA) Negative (Negative) Urine Ketones Negative (Negative) Urine Blood Negative (Negative) Urine Nitrite Negative (Negative) Urine Bilirubin Negative (Negative) Urine Urobilinogen 2.0 (<2.0) mg/dL Ur Leukocyte Esterase Negative (Negative) Urine RBC 2 (0-5) /hpf Urine WBC 4 (0-5) /hpf Ur Squamous Epith Cells 10 H (0-4) /hpf Urine Bacteria Rare H (None) /hpf Urine Mucus Many H (None) /hpf Urine HCG, Qual Not Detected (Not Detectd) 08/24/18 Range/Units 06:07 WBC 7.7 (3.8-10.6) k/uL RBC 4.96 (3.80-5.40) m/uL Hgb 14.9 (11.4-16.0) gm/dL Hct 44.0 (34.0-46.0) % MCV 88.9 (80.0-100.0) fL MCH 30.1 (25.0-35.0) pg MCHC 33.9 (31.0-37.0) g/dL RDW 12.8 (11.5-15.5) % Plt Count 286 (150-450) k/uL Neutrophils % 66 % Lymphocytes % 25 % Monocytes % 6 % Eosinophils % 1 % Basophils % 0 % Neutrophils # 5.1 (1.3-7.7) k/uL Lymphocytes # 1.9 (1.0-4.8) k/uL Monocytes # 0.5 (0-1.0) k/uL Eosinophils # 0.1 (0-0.7) k/uL Basophils # 0.0 (0-0.2) k/uL Sodium (137-145) mmol/L Potassium (3.5-5.1) mmol/L Chloride (98-107) mmol/L Carbon Dioxide (22-30) mmol/L Anion Gap mmol/L BUN (7-17) mg/dL Creatinine (0.52-1.04) mg/dL Est GFR (CKD-EPI)AfAm (>60 ml/min/1.73 sqM) Est GFR (CKD-EPI)NonAf (>60 ml/min/1.73 sqM) Glucose (74-99) mg/dL Calcium (8.4-10.2) mg/dL Urine Color Urine Appearance (Clear) Urine pH (5.0-8.0) Ur Specific [place] (1.001-1.035) Urine Protein (Negative) Urine Glucose (UA) (Negative) Urine Ketones (Negative) Urine Blood (Negative) Urine Nitrite (Negative) Urine Bilirubin (Negative) Urine Urobilinogen (<2.0) mg/dL Ur Leukocyte Esterase (Negative) Urine RBC (0-5) /hpf Urine WBC (0-5) /hpf Ur Squamous Epith Cells (0-4) /hpf Urine Bacteria (None) /hpf Urine Mucus (None) /hpf Urine HCG, Qual (Not Detectd) Disposition Clinical Impression: Hypertension Disposition: HOME SELF-CARE Condition: Good Instructions: Hypertension (ED), Dizziness (ED) Prescriptions: Lisinopril [Zestril] 10 mg PO DAILY #30 tab Is patient prescribed a controlled substance at d/c from ED?: No Referrals: Jose Paredes DO [Primary Care Provider] - 1-2 days
[2018-08-24 07:44] VITALS: BP 143/91; PULSE 89; RESP 18; TEMP 97.4
== END 2018-08-24 07:43 | disposition home or self-care (01) ==
LOC: EC 03:52
DX: I10 Essential (primary) hypertension (principal); Z88.0 Allergy status to penicillin; Z91.013 Allergy to seafood; Z91.048 Other nonmedicinal substance allergy status; Z88.8 Allergy status to other drugs, medicaments and biological substances
CPT/HCPCS: 36415; 93005; 80048; 85025; 81001; 81025; 99284; 96374; J0360

== ENCOUNTER → 2023-02-28 | Outpatient (CLI) | payer OTHER ==
[2023-03-01 02:32] LABS: Creatinine 24 Hour,Urine 1.13 g/24Hr (0.80-1.80)
== END | disposition home or self-care (01) ==
LOC: LABWHC1 16:21
PROVIDERS: ATTEND Internal Medicine Cardiovascular Disease
DX: I10 Essential (primary) hypertension (principal); E78.2 Mixed hyperlipidemia
CPT/HCPCS: 36415; 81050; 82088; 82533; 82570; 83835; 84244; 84436; 84443; 84480

== ENCOUNTER 2023-10-02 14:28 | Inpatient (IN) | payer OTHER ==
--- NOTE | 2023-10-02 14:34 | ED ---
General Adult HPI - General Source: patient, RN notes reviewed Mode of arrival: ambulatory Limitations: no limitations <Jake Zamora - Last Filed: 10/02/23 14:32> - General Source: RN notes reviewed, old records reviewed Limitations: no limitations - History of Present Illness -: days(s) Location: face Radiation: non-radiation Severity scale (1-10): 4 Quality: aching Consistency: constant Improves with: none Worsens with: none Associated Symptoms: nausea/vomiting, weakness Treatments Prior to Arrival: none <Jose Gonzales - Last Filed: 10/10/23 11:04> - General Stated complaint: L Eye Issue,Bleed on Optical Nerve Time Seen by Provider: 10/02/23 14:32 - History of Present Illness Initial comments: 42-year-old female presents emergency Department chief complaint left eye and she's. Patient states that she went health management consultant on because her patient was changing. They state that they noticed some abnormality's and she follow-up with Dr. Mcnamara on Sunday morning. Patient states that she was told that she had some bleeding and she is scheduled for an MRI. She states she saw PCP today is a worsening symptoms and advised to come emergency department. She has an MRI scheduled but it is several days away. She complains of a headache and is had no recent imaging (Jake Zamora) This is a 42-year-old female DF for evaluation of left eye blurry vision. Patient has recent change in symptoms. Patient sent in from medical laboratory technician for evaluation regards to headache blurry vision as well as other complaints. Patient has some dizziness and headache here in the ER but no other specific complaints (Jose Gonzales) - Related Data Home Medications Medication Instructions Recorded Confirmed Multivitamins, Thera [Multivitamin 1 tab PO DAILY 10/02/23 10/02/23 (formulary)] Previous Rx's Medication Instructions Recorded Atorvastatin [Lipitor] 40 mg PO HS #30 tab 10/06/23 Famotidine [Pepcid] 20 mg PO DAILY #30 tablet 10/06/23 Spironolactone [Aldactone] 100 mg PO DAILY #30 tab 10/06/23 lisinopriL [Zestril] 20 mg PO BID #60 tab 10/06/23 Allergies Allergy/AdvReac Type Severity Reaction Status Date / Time amoxicillin [From Augmentin] Allergy Anaphylaxis Verified 10/02/23 18:24 clavulanic acid Allergy Anaphylaxis Verified 10/02/23 18:24 [From Augmentin] fish oil Allergy Anaphylaxis Verified 10/02/23 18:24 iodine Allergy Anaphylaxis Verified 10/02/23 18:24 povidone-iodine Allergy Anaphylaxis Verified 10/02/23 18:24 [From Betadine] shellfish derived [Shellfish] Allergy Anaphylaxis Verified 10/02/23 18:24 soap [From Betadine] Allergy Anaphylaxis Verified 10/02/23 18:24 Review of Systems ROS Other: All systems not noted in ROS Statement are negative. <Jake Zamora - Last Filed: 10/02/23 14:32> ROS Other: All systems not noted in ROS Statement are negative. <Jose Gonzales - Last Filed: 10/10/23 11:04> ROS Statement: Those systems with pertinent positive or pertinent negative responses have been documented in the HPI. Past Medical History Past Medical History: Hypertension Additional Past Medical History / Comment(s): HTN, Gestational DM, WITH PREGNANC Y History of Any Multi-Drug Resistant Organisms: None Reported Past Surgical History: Cholecystectomy, Tubal Ligation Additional Past Surgical History / Comment(s): ORAL SURGERY, LAPROSCOPIC CYSTS REMOVAL FROM OVARIES Past Psychological History: No Psychological Hx Reported Past Alcohol Use History: Occasional Past Drug Use History: None Reported <Jake Zamora - Last Filed: 10/02/23 14:32> General Exam <Jake Zamora - Last Filed: 10/02/23 14:32> General appearance: alert, in no apparent distress Head exam: Present: atraumatic, normocephalic, normal inspection Eye exam: Present: normal appearance, PERRL, EOMI. Absent: scleral icterus, conjunctival injection, periorbital swelling ENT exam: Present: normal exam, mucous membranes moist Neck exam: Present: normal inspection. Absent: tenderness, meningismus, lymphadenopathy Respiratory exam: Present: normal lung sounds bilaterally. Absent: respiratory distress, wheezes, rales, rhonchi, stridor Cardiovascular Exam: Present: regular rate, normal rhythm, normal heart sounds. Absent: systolic murmur, diastolic murmur, rubs, gallop, clicks GI/Abdominal exam: Present: soft, normal bowel sounds. Absent: distended, tenderness, guarding, rebound, rigid Extremities exam: Present: normal inspection, full ROM, normal capillary refill. Absent: tenderness, pedal edema, joint swelling, calf tenderness Back exam: Present: normal inspection Neurological exam: Present: alert, oriented X3, CN II-XII intact Psychiatric exam: Present: normal affect, normal mood Skin exam: Present: warm, dry, intact, normal color. Absent: rash <Jose Gonzales - Fadi Filed: 10/10/23 11:04> - General Exam Comments Initial Comments: Visual Physical Exam Vital signs reviewed General: Well-appearing, nontoxic, no acute distress. Head: Normocephalic, atraumatic Eyes: PERRLA, EOMI ENT: Airway patent Chest: Nonlabored breathing Skin: No visual rash, normal skin tone Neuro: Alert and oriented 3 Musculoskeletal: No gross abnormalities (Jake Zamora) Course <Jose Gonzales - Fadi Filed: 10/10/23 11:04> Vital Signs 10/02/23 10/02/23 10/02/23 14:32 16:20 17:10 Temperature 98.0 F 98.6 F Pulse Rate 128 H 101 H 96 Respiratory 18 18 18 Rate Blood Pressure 232/138 237/132 221/126 Blood Pressure [Right Arm Sitting] Blood Pressure [Right Arm Standing] Blood Pressure [Right Arm Supine] O2 Sat by Pulse 98 98 96 Oximetry 10/02/23 10/02/23 10/02/23 18:05 19:24 19:30 Temperature 98.1 F Pulse Rate 85 72 74 Respiratory 17 18 18 Rate Blood Pressure 230/134 245/144 213/129 Blood Pressure [Right Arm Sitting] Blood Pressure [Right Arm Standing] Blood Pressure [Right Arm Supine] O2 Sat by Pulse 96 97 97 Oximetry 10/02/23 10/02/23 10/02/23 20:00 20:30 21:30 Temperature Pulse Rate 72 70 66 Respiratory 17 16 17 Rate Blood Pressure 231/127 224/109 214/113 Blood Pressure [Right Arm Sitting] Blood Pressure [Right Arm Standing] Blood Pressure [Right Arm Supine] O2 Sat by Pulse 95 96 95 Oximetry 10/02/23 10/02/23 10/02/23 22:00 22:05 22:30 Temperature Pulse Rate 73 74 76 Respiratory 18 17 17 Rate Blood Pressure 211/111 218/117 218/117 Blood Pressure [Right Arm Sitting] Blood Pressure [Right Arm Standing] Blood Pressure [Right Arm Supine] O2 Sat by Pulse 95 95 96 Oximetry 10/02/23 10/02/23 10/03/23 23:00 23:30 00:00 Temperature Pulse Rate 87 98 73 Respiratory 18 17 17 Rate Blood Pressure 209/105 209/117 216/115 Blood Pressure [Right Arm Sitting] Blood Pressure [Right Arm Standing] Blood Pressure [Right Arm Supine] O2 Sat by Pulse 97 97 97 Oximetry 10/03/23 10/03/23 10/03/23 00:02 01:09 01:30 Temperature Pulse Rate 72 73 71 Respiratory 20 18 17 Rate Blood Pressure 184/124 200/128 200/128 Blood Pressure [Right Arm Sitting] Blood Pressure [Right Arm Standing] Blood Pressure [Right Arm Supine] O2 Sat by Pulse 95 95 96 Oximetry 10/03/23 10/03/23 10/03/23 02:19 02:30 03:30 Temperature Pulse Rate 66 64 70 Respiratory 17 17 18 Rate Blood Pressure 180/99 180/99 188/123 Blood Pressure [Right Arm Sitting] Blood Pressure [Right Arm Standing] Blood Pressure [Right Arm Supine] O2 Sat by Pulse 95 95 95 Oximetry 10/03/23 10/03/23 10/03/23 04:10 04:15 04:30 Temperature Pulse Rate 76 89 106 H Respiratory 17 20 19 Rate Blood Pressure 174/92 174/92 175/99 Blood Pressure [Right Arm Sitting] Blood Pressure [Right Arm Standing] Blood Pressure [Right Arm Supine] O2 Sat by Pulse 95 97 98 Oximetry 10/03/23 10/03/23 10/03/23 05:05 05:30 06:11 Temperature Pulse Rate 81 86 75 Respiratory 19 17 17 Rate Blood Pressure 190/104 190/104 161/95 Blood Pressure [Right Arm Sitting] Blood Pressure [Right Arm Standing] Blood Pressure [Right Arm Supine] O2 Sat by Pulse 95 95 95 Oximetry 10/03/23 10/03/23 10/03/23 06:30 07:48 09:00 Temperature Pulse Rate 80 92 96 Respiratory 17 18 17 Rate Blood Pressure 161/95 202/111 160/81 Blood Pressure [Right Arm Sitting] Blood Pressure [Right Arm Standing] Blood Pressure [Right Arm Supine] O2 Sat by Pulse 95 97 95 Oximetry 10/03/23 10:12 Temperature Pulse Rate Respiratory Rate Blood Pressure Blood Pressure 161/97 [Right Arm Sitting] Blood Pressure 157/94 [Right Arm Standing] Blood Pressure 155/88 [Right Arm Supine] O2 Sat by Pulse Oximetry - Reevaluation(s) Reevaluation #1: 10/02/23 20:57 Medical record is reviewed (Jose Gonzales) Reevaluation #2: 10/02/23 20:57 Patient symptoms are unchanged (Jose Gonzales) Reevaluation #3: 10/02/23 20:57 Patient informed results and questions answered (Jose Gonzales) Reevaluation #4: 10/02/23 20:57 Was pt. sent in by a medical professional or institution (DELANEY Funk, [employer], urgent care, hospital, or prison...) When possible be specific @ -no Did you speak to anyone other than the patient for history (EMS, parent, family, police, friend...)? What history was obtained from this source @ -no Did you review nursing and triage notes (agree or disagree)? Why? @ -agree Are old charts reviewed (outside hosp., previous admission, EMS record, old EKG, old radiological studies, urgent care reports/EKG's, prison records)? Report findings @ -yes Differential Diagnosis (chest pain, altered mental status, abdominal pain women, abdominal pain men, vaginal bleeding, weakness, fever, dyspnea, syncope, headache, dizziness, GI bleed, back pain, seizure, CVA, palpatations, mental health, musculoskeletal)? @ -prior EKG interpreted by me (3pts min.). @ -no X-rays interpreted by me (1pt min.). @ -no CT interpreted by me (1pt min.). @ -yes negative for acute disease U/S interpreted by me (1pt. min.). @ -no What testing was considered but not performed or refused? (CT, X-rays, U/S, labs)? Why? @ -none What meds were considered but not given or refused? Why? @ -none Did you discuss the management of the patient with other professionals (professionals i.e. DELANEY Funk, [employer], lab, RT, psych nurse, social professionals, funeral home associate, teacher, police officer crime prevention, case management social worker)? Give summary @ -no Was smoking cessation discussed for >3mins.? @ -no Was critical care preformed (if so, how long)? @ -no Were there social determinants of health that impacted care today? How? (Homelessness, low income, unemployed, alcoholism, drug addiction, transportation, low edu. Level, literacy, decrease access to med. care, skilled nursing, rehab)? @ -none Was there de-escalation of care discussed even if they declined (Discuss DNR or withdrawal of care, Hospice)? DNR status @ -no What co-morbidities impacted this encounter? (DM, HTN, Smoking, COPD, CAD, Cancer, CVA, ARF, Chemo, Hep., AIDS, mental health diagnosis, sleep apnea, morbid obesity)? @ -none Was patient admitted / discharged? Hospital course, mention meds given and route, prescriptions, significant lab abnormalities, going to OR and other pertinent info. @ -42 female to the emergency department for evaluation. Patient presents t [facility] for evaluation of dizziness lightheadedness left eye blurry vision. Patient will be admitted for neurology evaluation, MRI brain patient does have continued severely uncontrolled blood pressure and hypertension Admitted Undiagnosed new problem with uncertain prognosis? @ -no Drug Therapy requiring intensive monitoring for toxicity (Heparin, Nitro, Insulin, Cardizem)? @ -no Were any procedures done? @ -no Diagnosis/symptom? @ -Progression, hypertension Acute, or Chronic, or Acute on Chronic? @ -Acute Uncomplicated (without systemic symptoms) or Complicated (systemic symptoms)? @ -Complicated Side effects of treatment? @ -no Exacerbation, Progression, or Severe Exacerbation? @ -exacerbation Poses a threat to life or bodily function? How? (Chest pain, [place], [place], pneumonia, PE, COPD, DKA, ARF, appy, cholecystitis, CVA, Diverticulitis, Homicidal, Suicidal, threat to staff... and all critical care pts) @ -yes with significant neurological changes (Jose Gonzales) Reevaluation #5: 10/02/23 20:57 Differential Dizziness: Benign paroxysmal positional Vertigo, Menieres disease, otitis media, acoustic neuroma, vertebrobasilar insufficiency, cerebellar stroke, encephalitis, hypovolemic, arrhythmia, coronary artery syndrome, anemia, this is not meant to be an all-inclusive list (Jose Gonzales) Medical Decision Making <Jake Zamora - Last Filed: 10/02/23 14:32> - Lab Data Result diagrams: 10/04/23 08:39 10/04/23 08:39 - Radiology Data Radiology results: report reviewed (CT brain is negative for acute disease), image reviewed <Jose Gonzales - Last Filed: 10/10/23 11:04> - Medical Decision Making I completed the quick note portion of this chart signed Jake Zamora PA-C (Jake Zamora) 42 female to the emergency department for evaluation. Patient presents today f or evaluation of dizziness lightheadedness left eye blurry vision. Patient will be admitted for neurology evaluation, MRI brain patient does have continued severely uncontrolled blood pressure and hypertension (Jose Gonzales) - Lab Data Lab Results 10/02/23 10/02/23 10/02/23 Range/Units 15:19 16:14 16:14 WBC 8.1 (3.8-10.6) k/uL RBC 4.68 (3.80-5.40) m/uL Hgb 14.3 (11.4-16.0) gm/dL Hct 41.3 (34.0-46.0) % MCV 88.2 (80.0-100.0) fL MCH 30.5 (25.0-35.0) pg MCHC 34.5 (31.0-37.0) g/dL RDW 12.6 (11.5-15.5) % Plt Count 272 (150-450) k/uL MPV 8.5 Neutrophils % 66 % Lymphocytes % 22 % Monocytes % 7 % Eosinophils % 3 % Basophils % 0 % Neutrophils # 5.3 (1.3-7.7) k/uL Lymphocytes # 1.8 (1.0-4.8) k/uL Monocytes # 0.5 (0-1.0) k/uL Eosinophils # 0.3 (0-0.7) k/uL Basophils # 0.0 (0-0.2) k/uL PT 10.4 (10.0-12.5) sec INR 0.9 (<1.2) APTT 23.0 (22.0-30.0) sec Sodium 141 (137-145) mmol/L Potassium 4.0 (3.5-5.1) mmol/L Chloride 104 (98-107) mmol/L Carbon Dioxide 27 (22-30) mmol/L Anion Gap 10 mmol/L BUN 18 H (7-17) mg/dL Creatinine 0.68 (0.52-1.04) mg/dL Est GFR (CKD-EPI)AfAm >90 (>60 ml/min/1.73 sqM) Est GFR (CKD-EPI)NonAf >90 (>60 ml/min/1.73 sqM) Glucose 92 (74-99) mg/dL Calcium 9.2 (8.4-10.2) mg/dL Total Bilirubin 0.3 (0.2-1.3) mg/dL AST 28 (14-36) U/L ALT 26 (4-34) U/L Alkaline Phosphatase 56 (38-126) U/L Total Protein 6.9 (6.3-8.2) g/dL Albumin 4.1 (3.5-5.0) g/dL Disposition <Jake Zamora - Last Filed: 10/02/23 14:32> Is patient prescribed a controlled substance at d/c from ED?: No Time of Disposition: 17:30 <Jose Gonzales - Last Filed: 10/10/23 11:04> Clinical Impression: Hypertensive emergency, Headache, Blurry vision, left eye Disposition: ADMITTED IP TO THIS HOSP Condition: Fair
--- NOTE | 2023-10-02 15:19 | CT ---
EXAMINATION TYPE: CT brain wo con DATE OF EXAM: 10/02/2023 COMPARISON: None HISTORY: 42-year-old female headache and visual disturbance, left eye Bleed on optic nerve, visual di sturbance, headache, dizziness TECHNIQUE: Examination was done in axial plane without intravenous contrast. Coronal and sagittal r econstructions performed. CT DLP: 1091.4 mGycm Automated exposure control for dose reduction was used. FINDINGS: There is no evidence of acute intracranial hemorrhage, acute ischemic changes, mass, mass-effect, or extra-axial fluid collection. There is no effacement of cerebral sulci or basal subarachnoid cister ns. There is no hydrocephalus. There is no midline shift. Cheng-white matter distinction is preserv ed. Incidental empty sella. Leftward nasal septal deviation. Paranasal sinuses and mastoid air cells are well pneumatized. Orbits and globes appear symmetric. IMPRESSION: Empty sella. Given the patient's headache, visual disturbance, and body habitus, consider pseudotumor cerebri in the differential. No acute intracranial abnormality otherwise seen.
[2023-10-02 15:30] LABS: Basophils % (A) 0 %; Eosinophils # (A) 0.3 k/uL (0-0.7); Eosinophils % (A) 3 %; HCT 41.3 % (34.0-46.0); HGB 14.3 gm/dL (11.4-16.0); Lymphocytes # (A) 1.8 k/uL (1.0-4.8); Lymphocytes % (A) 22 %; MCH 30.5 pg (25.0-35.0); MCHC 34.5 g/dL (31.0-37.0); MCV 88.2 fL (80.0-100.0); Mean Platelet Volume 8.5; Monocytes # (A) 0.5 k/uL (0-1.0); Monocytes % (A) 7 %; Neutrophils # (A) 5.3 k/uL (1.3-7.7); Neutrophils % (A) 66 %; Platelet Count 272 k/uL (150-450); RBC 4.68 m/uL (3.80-5.40); RDW 12.6 % (11.5-15.5); WBC 8.1 k/uL (3.8-10.6)
[2023-10-02 16:47] LABS: ALT 26 U/L (4-34); AST 28 U/L (14-36); African American GFR (CKD) >90 (>60 ml/min/1.73 sqM); Albumin 4.1 g/dL (3.5-5.0); Alkaline Phosphatase 56 U/L (38-126); Anion Gap 10 mmol/L; Blood Urea Nitrogen 18 mg/dL (7-17); Calcium 9.2 mg/dL (8.4-10.2); Carbon Dioxide 27 mmol/L (22-30); Chloride 104 mmol/L (98-107); Glucose 92 mg/dL (74-99); INR 0.9 (<1.2); Non-African American GFR(CKD) >90 (>60 ml/min/1.73 sqM); Prothrombin Time 10.4 sec (10.0-12.5); Sodium 141 mmol/L (137-145); Total Bilirubin 0.3 mg/dL (0.2-1.3); Total Protein 6.9 g/dL (6.3-8.2)
[2023-10-02] MEDS ORDERED: NALOXONE 0.4 MG/ML 1 ML VIAL IV PRN (17:23)
[2023-10-02] MEDS ORDERED: LABETALOL 5 MG/ML VIAL MDV IVP STA (17:42)
[2023-10-02] MEDS: SODIUM CHLORIDE 0.9% 1,000 ML IV SCH (17:59)
[2023-10-02] MEDS ORDERED: HYDROmorphone 1 MG/ML 1 ML SYRINGE IVP STA (18:04)
[2023-10-02] MEDS: hydrALAZINE HCL 20 MG/ML 1 ML VIAL IVP PRN (22:06)
[2023-10-03] MEDS: ONDANSETRON 4 MG/2 ML VIAL IVP PRN ×2 (00:04→07:58)
[2023-10-03] MEDS: HYDROmorphone 1 MG/ML 1 ML SYRINGE IVP PRN ×2 (00:08→07:57)
[2023-10-03] MEDS ORDERED: lisinopriL 20 MG TAB PO SCH (01:20)
[2023-10-03] MEDS: lisinopriL 20 MG TAB PO SCH ×3 (01:26→18:07)
[2023-10-03] MEDS: hydrALAZINE HCL 20 MG/ML 1 ML VIAL IVP PRN ×2 (03:33→07:58)
[2023-10-03 07:32] LABS: Basophils % (A) 0 %; Eosinophils # (A) 0.1 k/uL (0-0.7); Eosinophils % (A) 1 %; HCT 43.4 % (34.0-46.0); HGB 14.6 gm/dL (11.4-16.0); Lymphocytes # (A) 1.3 k/uL (1.0-4.8); Lymphocytes % (A) 9 %; MCH 30.2 pg (25.0-35.0); MCHC 33.8 g/dL (31.0-37.0); MCV 89.3 fL (80.0-100.0); Monocytes # (A) 0.5 k/uL (0-1.0); Monocytes % (A) 4 %; Neutrophils # (A) 11.7 k/uL (1.3-7.7); Neutrophils % (A) 85 %; Platelet Count 276 k/uL (150-450); RBC 4.85 m/uL (3.80-5.40); RDW 13.2 % (11.5-15.5); WBC 13.8 k/uL (3.8-10.6)
[2023-10-03] MEDS: SODIUM CHLORIDE 0.9% 1,000 ML IV SCH (07:46)
[2023-10-03 07:51] LABS: ALT 37 U/L (4-34); AST 36 U/L (14-36); African American GFR (CKD) >90 (>60 ml/min/1.73 sqM); Albumin 4.5 g/dL (3.5-5.0); Alkaline Phosphatase 68 U/L (38-126); Anion Gap 14 mmol/L; Blood Urea Nitrogen 14 mg/dL (7-17); Calcium 9.5 mg/dL (8.4-10.2); Carbon Dioxide 21 mmol/L (22-30); Chloride 102 mmol/L (98-107); Glucose 144 mg/dL (74-99); Non-African American GFR(CKD) >90 (>60 ml/min/1.73 sqM); Sodium 137 mmol/L (137-145); Total Bilirubin 0.5 mg/dL (0.2-1.3); Total Protein 7.6 g/dL (6.3-8.2)
--- NOTE | 2023-10-03 09:53 | P.CRDCN ---
History of Present Illness History of present illness: HISTORY OF PRESENT ILLNESS: This is a 42-year-old female with a past medical history significant for hypertension. Patient sees a coke oven mason out of [place]. She states she is on a waiting list to get a second appointment from a different coke oven mason. We have been asked to see the patient in consultation for hypertension. Patient examined at the bedside in the ER. Patient was at her PCP office yesterday secondary to worsening blurry vision. She had recently seen an soft drink powder mixer and was scheduled for MRI on an outpatient basis. She was sent into the hospital by her PCP for further evaluation. Patient was found to have extremely elevated blood pressures upon arrival to the hospital with a reading of 232/138. She was started on lisinopril. Blood pressure currently 160s/80s. The patient reports she feels sick from the blood pressure medication she has received while in the hospital. She reports a headache at the time of examination. She also reports dizziness. Patient states her blood pressure at home usually runs 250s/130s. She states she has been on numerous medications and does not tolerate them including lisinopril, carvedilol, amlodipine, chlorthalidone, HCTZ. She does not believe she has been on Aldactone previously. * EKG not available at the time of this dictation. Bedside telemetry reveals sinus mechanism. * Current home cardiac medications include Catapres 0.2mg twice a day * No previous echocardiogram or cardiac catheterization available on EMR for review REVIEW OF SYSTEMS: At the time of my exam: CONSTITUTIONAL: Denies fever or chills. HEENT: Denies blurred vision, vision changes, or eye pain. Denies hemoptysis CARDIOVASCULAR: Denies chest pain. Denies orthopnea. Denies PND. Denies palpit ations RESPIRATORY: Denies shortness of breath. GASTROINTESTINAL: Denies abdominal pain. Denies nausea or vomiting. HEMATOLOGIC: Denies bleeding disorders. GENITOURINARY: Denies any blood in urine. SKIN: Denies pruitis. Denies rash. PHYSICAL EXAM: VITAL SIGNS: Reviewed. GENERAL: Well-developed in no acute distress. HEENT: Head is normocephalic. Pupils are equal, round. Sclerae anicteric. Mucous membranes of the mouth are moist. Neck supple. No JVD or thyromegaly LUNGS: Respirations even and unlabored. Lungs essentially clear to auscultation bilaterally. HEART: Regular rate and rhythm. S1 and S2 heard. ABDOMEN: Soft. Nondistended. Nontender. EXTREMITIES: Normal range of motion. No clubbing or cyanosis. Peripheral pulses intact. No lower extremity edema NEUROLOGIC: Awake and alert. Oriented x 3. ASSESSMENT: Blurred vision Bleeding behind left optic nerve, per patient, scheduled for outpatient MRI Headache Hypertensive emergency Morbid obesity: BMI 35.3 PLAN: Obtain 2-D echo to assess cardiac structure and function Obtain EKG Patient has been started on lisinopril per primary medicine No addition to BP medications at this time. Allow BP to come down slowly as she is very symptomatic with BP decreasing rapidly. Attempt to keep SBP around 180 for today. Do not resume clonidine at this time Discontinue IV PRN antihypertensive medications as this makes it difficult to determine appropriate oral antihypertensive regimen Continue to monitor blood pressure Neurology has been consulted for evaluation. Await recommendations Check orthostatics Check carotid doppler Obtain records from patients coke oven mason out of [place] Further recommendations pending patient's course Nurse practitioner note has been reviewed by physician. Signing provider agrees with the documented findings, assessment, and plan of care. Past Medical History Past Medical History: Hypertension Additional Past Medical History / Comment(s): HTN, Gestational DM, WITH History of Any Multi-Drug Resistant Organisms: None Reported Past Surgical History: Cholecystectomy, Tubal Ligation Additional Past Surgical History / Comment(s): ORAL SURGERY, LAPROSCOPIC CYSTS REMOVAL FROM OVARIES Past Psychological History: No Psychological Hx Reported Past Alcohol Use History: Occasional Past Drug Use History: None Reported Medications and Allergies Home Medications Medication Instructions Recorded Confirmed Type Multivitamins, Thera [Multivitamin 1 tab PO DAILY 10/02/23 10/02/23 History (formulary)] cloNIDine HCL [Catapres] 0.2 mg PO BID 10/02/23 10/02/23 History Allergies Allergy/AdvReac Type Severity Reaction Status Date / Time amoxicillin [From Augmentin] Allergy Anaphylaxis Verified 10/02/23 18:24 clavulanic acid Allergy Anaphylaxis Verified 10/02/23 18:24 [From Augmentin] fish oil Allergy Anaphylaxis Verified 10/02/23 18:24 iodine Allergy Anaphylaxis Verified 10/02/23 18:24 povidone-iodine Allergy Anaphylaxis Verified 10/02/23 18:24 [From Betadine] shellfish derived [Shellfish] Allergy Anaphylaxis Verified 10/02/23 18:24 soap [From Betadine] Allergy Anaphylaxis Verified 10/02/23 18:24 Physical Exam Vitals: Vital Signs Temp Pulse Resp BP Pulse Ox 10/03/23 07:48 92 18 202/111 97 10/03/23 06:30 80 17 161/95 95 10/03/23 06:11 75 17 161/95 95 10/03/23 05:30 86 17 190/104 95 10/03/23 05:05 81 19 190/104 95 10/03/23 04:30 106 H 19 175/99 98 10/03/23 04:15 89 20 174/92 97 10/03/23 04:10 76 17 174/92 95 10/03/23 03:30 70 18 188/123 95 10/03/23 02:30 64 17 180/99 95 10/03/23 02:19 66 17 180/99 95 10/03/23 01:30 71 17 200/128 96 10/03/23 01:09 73 18 200/128 95 10/03/23 00:02 72 20 184/124 95 10/03/23 00:00 73 17 216/115 97 10/02/23 23:30 98 17 209/117 97 10/02/23 23:00 87 18 209/105 97 10/02/23 22:30 76 17 218/117 96 10/02/23 22:05 74 17 218/117 95 10/02/23 22:00 73 18 211/111 95 10/02/23 21:30 66 17 214/113 95 10/02/23 20:30 70 16 224/109 96 10/02/23 20:00 72 17 231/127 95 10/02/23 19:30 74 18 213/129 97 10/02/23 19:24 72 18 245/144 97 10/02/23 18:05 98.1 F 85 17 230/134 96 10/02/23 17:10 96 18 221/126 96 10/02/23 16:20 98.6 F 101 H 18 237/132 98 10/02/23 14:32 98.0 F 128 H 18 232/138 98 Results 10/03/23 07:19 10/03/23 07:19 Cardiac Enzymes 10/02/23 10/03/23 Range/Units 16:14 07:19 AST 28 36 (14-36) U/L Coagulation 10/02/23 Range/Units 16:14 PT 10.4 (10.0-12.5) sec APTT 23.0 (22.0-30.0) sec CBC 10/02/23 12 Range/Units 15:19 07:19 WBC 8.1 13.8 H (3.8-10.6) k/uL RBC 4.68 4.85 (3.80-5.40) m/uL Hgb 14.3 14.6 (11.4-16.0) gm/dL Hct 41.3 43.4 (34.0-46.0) % Plt Count 272 276 (150-450) k/uL Comprehensive Metabolic Panel 10/02/23 10/03/23 Range/Units 16:14 07:19 Sodium 141 137 (137-145) mmol/L Potassium 4.0 4.0 (3.5-5.1) mmol/L Chloride 104 102 (98-107) mmol/L Carbon Dioxide 27 21 L (22-30) mmol/L BUN 18 H 14 (7-17) mg/dL Creatinine 0.68 0.45 L (0.52-1.04) mg/dL Glucose 92 144 H (74-99) mg/dL Calcium 9.2 9.5 (8.4-10.2) mg/dL AST 28 36 (14-36) U/L ALT 26 37 H (4-34) U/L Alkaline Phosphatase 56 68 (38-126) U/L Total Protein 6.9 7.6 (6.3-8.2) g/dL Albumin 4.1 4.5 (3.5-5.0) g/dL Current Medications Generic Name Dose Route Start Last Admin Trade Name Freq PRN Reason Stop Dose Admin Hydralazine HCl 10 mg 10/02/23 20:03 10/03/23 07:58 Hydralazine Hcl 20 Mg/Ml 1 Ml Vial IVP 10 mg Q4HR PRN Administration Blood Pressure - High Hydromorphone HCl 1 mg 10/02/23 18:04 10/03/23 07:57 Hydromorphone 1 Mg/Ml 1 Ml Syringe IVP 1 mg Q4HR PRN Administration Pain Sodium Chloride 1,000 mls @ 75 mls/hr 10/02/23 17:30 10/03/23 07:46 Saline 0.9% IV Not Given .[id number] DENITA Lisinopril 20 mg 10/03/23 01:30 10/03/23 08:06 Lisinopril 20 Mg Tab PO 20 mg BID DENITA Administration Naloxone HCl 0.2 mg 10/02/23 17:23 Naloxone 0.4 Mg/Ml 1 Ml Vial IV Q2M PRN Opioid Reversal Ondansetron HCl 4 mg 10/02/23 17:23 10/03/23 07:58 Ondansetron 4 Mg/2 Ml Vial IVP 4 mg Q8HR PRN Administration Nausea And Vomiting 10/03/23 07:19 10/03/23 07:19
[2023-10-03] MEDS ORDERED: METOCLOPRAMIDE 5 MG/ML 2 ML VIAL IVP PRN (10:08)
[2023-10-03] MEDS ORDERED: ONDANSETRON 4 MG/2 ML VIAL IVP PRN (10:09)
--- NOTE | 2023-10-03 13:09 | US ---
EXAMINATION TYPE: US carotid duplex BILAT DATE OF EXAM: 10/03/2023 COMPARISON: NONE CLINICAL INDICATION: Female, 42 years old with history of uncontrolled HTN, dizziness; Dizziness, HTN TECHNIQUE: Carotid duplex ultrasound examination. Indirect Doppler criteria was utilized. FINDINGS: EXAM MEASUREMENTS: RIGHT: Peak Systolic Velocity (PSV) cm/sec ----- Right CCA: 117.7 ----- Right ICA: 129.1 ----- Right ECA: 169.4 ICA/CCA ratio: 1.1 RIGHT: End Diastole cm/sec ----- Right CCA: 33.8 ----- Right ICA: 41.8 ----- Right ECA: 11.4 LEFT: Peak Systolic Velocity (PSV) cm/sec ----- Left CCA: 147.6 ----- Left ICA: 139.8 ----- Left ECA: 206.0 ICA/CCA ratio: 0.9 LEFT: End Diastole cm/sec ----- Left CCA: 33.3 ----- Left ICA: 37.3 ----- Left ECA: 27.6 VERTEBRALS (direction of flow): Right Vertebral: Antegrade Left Vertebral: Antegrade Rhythm: Normal DELI WORKER NOTES: Elevated velocities throughout carotid system bilaterally, however ?due to hyper tensive status? No plaque visualized bilaterally IMPRESSION: 1. Moderate increased velocity bilateral internal carotid arteries can be compatible with an approxim ately 50-69% narrowing. Obvious plaques are identified. Consider CTA if additional evaluation is re quired. Criteria for Assigning % of Stenosis / Diameter reduction (Estimation based on the indirect measurements of the internal carotid artery velocities (ICA PSV). 1. Normal (no stenosis)=ICA PSV < 125 cm/s: ratio < 2.0: ICA EDV<40 cm/s. 2. Less than 50% stenosis=ICA PSV < 125 cm/s: ratio < 2.0: ICA EDV<40 cm/s. 3. 50 to 69% stenosis=ICA PSV of 125 to 230 cm/s: ration 2.0 ? 4.0: ICA EDV 40-100 cm/s. 4. Greater than 70% stenosis to near occlusion= ICA PSV > 230 cm/s: ratio > 4.0: ICA EDV > 100 cm/s. 5. Near occlusion= ICA PSV velocities may be low or undetectable: variable ratio and ICA EDV. 6. Total occlusion=unable to detect flow.
--- NOTE | 2023-10-03 14:48 | P.HPIM ---
History of Present Illness H&P Date: 10/03/23 This is a 42-year-old female who presented to the emergency department with severe headache uncontrolled hypertension with hypertension urgency sent from primary care provider Dr. Putnam's office after being seen and evaluated by Jase aguilera as well as Dr. Mcnamara with concerns of possible hemorrhage behind the optic nerve. Ophthalmology did order MRI that was scheduled to be on October 12 although patient continues to have severe symptoms including blurry vision on the left and difficulty managing blood pressure. Patient was seen and evaluated by cardiology making adjustments to medications as patient was extremely hypertensive with a blood pressure of 200 systolic on admission. Patient has past medical history of hypertension with gestational diabetes and uncontrolled blood pressures even during for the last 5 years. Patient denies any tobacco use or alcohol use and reports she did attempt a marijuana currently to help control the headache although was ineffective. Patient denies any history of CVA or TIA and underwent CT brain which showed no acute evidence of intracranial hemorrhage or acute ischemic changes or mass masslike effect or extra-axial fluid collection. There is no hydrocephalus and no midline shift and there is an incidental empty sella with leftward nasal septal deviation and pseudotumor cerebri is within the differential. Cardiology was consulted as well as neurology. Patient continues to have severe nausea unable to tolerate oral intake and will make adjustments to medications. Review Of Systems: Constitutional: No fever, no chills, no night sweats. No weight change. No weakness, fatigue or lethargy. No daytime sleepiness. EENT: No headache. Reports left side blurred vision, denies double vision, no loss of vision. No loss of Hearing, no ringing in the ears, no dizziness. No nasal drainage or congestion. No epistaxis. No sore throat. Lungs: No shortness of breath, cough, no sputum production. No wheezing. Cardiovascular: No chest pain, no lower extremity edema. No palpitations. No paroxysmal nocturnal dyspnea. No orthopnea. Reports of lightheadedness or dizziness. No syncopal episodes. Abdominal: No abdominal pain. pt reports nausea, vomiting. No diarrhea. No constipation. No bloody or tarry stools.. No loss of appetite. Genitourinary: No dysuria, increased frequency, urgency. No urinary retention. Musculoskeletal: No myalgias. No muscle weakness, no gait dysfunction, no frequent falls. No back pain. No neck pain. Integumentary: No wounds, no lesions. No rash or pruritus. No unusual bruising. No change in hair or nails. Neurologic: No aphasia. No facial droop. No change in mentation. No head injury. Reports headache with history of migraines. No paralysis. No paresthesia. Psychiatric: No depression. No anxiety. No mood swings. Endocrine: No abnormal blood sugars. No weight change. No excessive sweating or thirst. No cold intolerance. PHYSICAL EXAMINATION: GENERAL: The patient is alert and oriented x4, Well developed, well nourished. Obese HEENT: Pupils are round and equally reacting to light. EOMI. no scleral icterus. No conjunctival pallor. Normocephalic, atraumatic. No pharyngeal erythema. No thyromegaly. Patient does experience photosensitivity CARDIOVASCULAR: S1 and S2 muffled PULMONARY: diminished breath sounds bilaterally otherwise clear to auscultation with no wheezing or rhonchi noted. ABDOMEN: soft. Nontender on exam. obese. non-distended, normoactive bowel sounds. No palpable organomegaly. MUSCULOSKELETAL: No joint swelling or deformity. EXTREMITIES: No cyanosis, clubbing, or pedal edema. NEUROLOGICAL: Gross neurological examination did not reveal any focal deficits. Diffuse weakness SKIN: No rashes. Assessment: Shoulder disturbances including left-sided blurry vision with concerns of possible behind the optic nerve bleeding as noted by ophthalmology outpatient Dr. Mcnamara Concerns of possible pseudotumor cerebri as noted on CT Elevated pressures of the left eye with edema Hypertension with hypertensive urgency, present on admission, uncontrolled blood pressure History of gestational diabetes Obesity with BMI 35.3 Patient reported history of migraines GI prophylaxis DVT prophylaxis Full code Plan: Recommend to continue with current medications and management cardiology and neurology consulted. Patient was seen and evaluated by cardiology this morning making adjustments to medications and patient has been placed back on lisinopril. Cardiology recommending monitoring blood pressure and monitoring for any hypotension and does not want blood pressures to fall below 140 systolic Carotid Dopplers were also obtained showing moderate increased velocity of bilateral internal carotid arteries be compatible with approximately 50-69% of narrowing obvious plaques are done a fight and to consider CTA for additional evaluation is required Neurology consulted and pending patient may benefit from LP. Patient was seen and evaluated by ophthalmology Dr. Mcnamara outpatient and had a scheduled MRI due to concerns for possible bleeding behind the optic nerve on the left which was scheduled for October 12 although patient continued having worsening visual symptoms and uncontrolled hypertension with nausea and vomiting and visual disturbances. Patient was seen by primary care provider and instructed to come to the ER for further evaluation Patient continues with extreme nausea and inability to tolerate oral intake and will add Reglan and continue Zofran. Continue Protonix twice daily Will add Toradol for pain management as patient reports Dilaudid is not helping The impression and plan of care has been dictated by Hazel Dodge, nurse practitioner as directed. Dr. Nia MD I have performed a history and examination and MDM of this patient, discussed the same with the dictator, and agree with the dictator's assessment and plan as written ,documented as a scribe. Based on total visit time, I have performed more than 50% of the visit. Any additional findings or plans will be noted. Past Medical History Past Medical History: Hypertension Additional Past Medical History / Comment(s): HTN, Gestational DM, WITH History of Any Multi-Drug Resistant Organisms: None Reported Past Surgical History: Cholecystectomy, Tubal Ligation Additional Past Surgical History / Comment(s): ORAL SURGERY, LAPROSCOPIC CYSTS REMOVAL FROM OVARIES Past Psychological History: No Psychological Hx Reported Past Alcohol Use History: Occasional Past Drug Use History: None Reported Medications and Allergies Home Medications Medication Instructions Recorded Confirmed Type Multivitamins, Thera [Multivitamin 1 tab PO DAILY 10/02/23 10/02/23 History (formulary)] cloNIDine HCL [Catapres] 0.2 mg PO BID 10/02/23 10/02/23 History Allergies Allergy/AdvReac Type Severity Reaction Status Date / Time amoxicillin [From Augmentin] Allergy Anaphylaxis Verified 10/02/23 18:24 clavulanic acid Allergy Anaphylaxis Verified 10/02/23 18:24 [From Augmentin] fish oil Allergy Anaphylaxis Verified 10/02/23 18:24 iodine Allergy Anaphylaxis Verified 10/02/23 18:24 povidone-iodine Allergy Anaphylaxis Verified 10/02/23 18:24 [From Betadine] shellfish derived [Shellfish] Allergy Anaphylaxis Verified 10/02/23 18:24 soap [From Betadine] Allergy Anaphylaxis Verified 10/02/23 18:24 Physical Exam Vitals: Vital Signs Temp Pulse Resp BP BP BP BP 10/03/23 10:12 161/97 157/94 155/88 10/03/23 09:00 96 17 160/81 10/03/23 07:48 92 18 202/111 10/03/23 06:30 80 17 161/95 10/03/23 06:11 75 17 161/95 10/03/23 05:30 86 17 190/104 10/03/23 05:05 81 19 190/104 10/03/23 04:30 106 H 19 175/99 10/03/23 04:15 89 20 174/92 10/03/23 04:10 76 17 174/92 10/03/23 03:30 70 18 188/123 10/03/23 02:30 64 17 180/99 10/03/23 02:19 66 17 180/99 10/03/23 01:30 71 17 200/128 10/03/23 01:09 73 18 200/128 10/03/23 00:02 72 20 184/124 10/03/23 00:00 73 17 216/115 10/02/23 23:30 98 17 209/117 10/02/23 23:00 87 18 209/105 10/02/23 22:30 76 17 218/117 10/02/23 22:05 74 17 218/117 10/02/23 22:00 73 18 211/111 10/02/23 21:30 66 17 214/113 10/02/23 20:30 70 16 224/109 10/02/23 20:00 72 17 231/127 10/02/23 19:30 74 18 213/129 10/02/23 19:24 72 18 245/144 10/02/23 18:05 98.1 F 85 17 230/134 10/02/23 17:10 96 18 221/126 10/02/23 16:20 98.6 F 101 H 18 237/132 10/02/23 14:32 98.0 F 128 H 18 232/138 Pulse Ox 10/03/23 10:12 10/03/23 09:00 95 10/03/23 07:48 97 10/03/23 06:30 95 10/03/23 06:11 95 10/03/23 05:30 95 10/03/23 05:05 95 10/03/23 04:30 98 10/03/23 04:15 97 10/03/23 04:10 95 10/03/23 03:30 95 10/03/23 02:30 95 10/03/23 02:19 95 10/03/23 01:30 96 10/03/23 01:09 95 10/03/23 00:02 95 10/03/23 00:00 97 10/02/23 23:30 97 10/02/23 23:00 97 10/02/23 22:30 96 10/02/23 22:05 95 10/02/23 22:00 95 10/02/23 21:30 95 10/02/23 20:30 96 10/02/23 20:00 95 10/02/23 19:30 97 10/02/23 19:24 97 10/02/23 18:05 96 10/02/23 17:10 96 10/02/23 16:20 98 10/02/23 14:32 98 Results CBC & Chem 7: 10/03/23 07:19 10/03/23 07:19 Labs: Abnormal Lab Results - Last 24 Hours (Table) 10/02/23 10/03/23 10/03/23 Range/Units 16:14 07:19 07:19 WBC 13.8 H (3.8-10.6) k/uL Neutrophils # 11.7 H (1.3-7.7) k/uL Carbon Dioxide 21 L (22-30) mmol/L BUN 18 H (7-17) mg/dL Creatinine 0.45 L (0.52-1.04) mg/dL Glucose 144 H (74-99) mg/dL ALT 37 H (4-34) U/L Thrombosis Risk Factor Assmnt - DVT/VTE Prophylaxis DVT/VTE Prophylaxis: Pharmacologic Prophylaxis ordered Assessment and Plan Time with Patient: Greater than 30
[2023-10-03] MEDS: KETOROLAC 15 MG/ML 1 ML VIAL IVP SCH ×2 (14:52→16:42)
[2023-10-03] MEDS: PANTOPRAZOLE 40 MG/10 ML VIAL IVP SCH ×2 (14:53→21:59)
[2023-10-03] MEDS ORDERED: HEPARIN SODIUM,PORCINE 5,000 UNIT/ML 1 ML VIAL SQ SCH (21:00)
[2023-10-04] MEDS ORDERED: amLODIPine 5 MG TAB PO STA (00:07)
[2023-10-04] MEDS: KETOROLAC 15 MG/ML 1 ML VIAL IVP SCH ×2 (00:18→04:34)
[2023-10-04] MEDS: lisinopriL 20 MG TAB PO SCH ×2 (04:33→20:37)
[2023-10-04] MEDS: SODIUM CHLORIDE 0.9% 1,000 ML IV SCH (04:34)
[2023-10-04] MEDS ORDERED: traMADol 50 MG TAB PO PRN (05:33)
[2023-10-04] MEDS ORDERED: KETOROLAC 15 MG/ML 1 ML VIAL IVP PRN (05:33)
[2023-10-04 09:06] LABS: Basophils % (A) 0 %; Eosinophils # (A) 0.1 k/uL (0-0.7); Eosinophils % (A) 1 %; HCT 43.4 % (34.0-46.0); HGB 14.4 gm/dL (11.4-16.0); Lymphocytes # (A) 1.7 k/uL (1.0-4.8); Lymphocytes % (A) 16 %; MCH 30.1 pg (25.0-35.0); MCHC 33.1 g/dL (31.0-37.0); MCV 90.9 fL (80.0-100.0); Mean Platelet Volume 8.4; Monocytes # (A) 0.6 k/uL (0-1.0); Monocytes % (A) 5 %; Neutrophils # (A) 7.9 k/uL (1.3-7.7); Neutrophils % (A) 76 %; Platelet Count 268 k/uL (150-450); RBC 4.78 m/uL (3.80-5.40); RDW 13.1 % (11.5-15.5); WBC 10.4 k/uL (3.8-10.6)
--- NOTE | 2023-10-04 09:18 | P.CNNES ---
History of Present Illness Consult date: 10/03/23 Requesting physician: Jose Gonzales Reason for Consult: Neuro History of Present Illness: Patient is a 42-year-old right-handed female came to the hospital yesterday at 2:28 PM for visual disturbance. Patient states that she has been noticing some changes in her vision in the last few months. She was noticing blurred vision, and wanted to get new glasses. Last , on 09/27/2023, she was seen by salesperson terrazzo tiles and her vision was changed in the left eye, whereas the right eye was fine. Patient saw Dr. Mcnamara in [place] the next day on 09/28/2023 and she was told that patient has "bleed behind the optic nerve", and her left eye was swollen and was recommended an MRI of the brain which is scheduled next week outpatient. She was told her vision is 20/20 right eye, and 20/50 left eye. Patient has developed some headache, pressure in both eyes, nausea, vomiting, dizziness which continued to get worse and worse. She saw her primary physician yesterday, who recommended her to go to the ER. Patient states that the headache started last Sunday, and she complains of a lot of pain in her head eyes and ears are ringing. Patient says that she does have history of chronic headaches as well. At present patient complains of headache in. Vital signs arrival blood pressure 232/138, which went up to 237/132, pulse rate 128, temperature 98.0. Blood tests showed normal CBC, PT/PTT, normal CMP. CT head revealed empty sella. Given the patient's headache, visual disturbance and body habitus, consider pseudotumor cerebri in the differential. No acute intracranial abnormality seen otherwise. Patient denies any numbness or tingling, slurred speech, facial droop, any focal weakness. Her balance is fine. She feels generalized weak, which she relates to the medications. Patient does not take any antiplatelet medications or any blood thinners. Patient has hypertension but denies diabetes. She has never smoked. Review of Systems Constitutional: Reports weight gain (Gained 67 lbs in October), Denies chills, Denies fever Eyes: left blurred vision, denies diplopia, denies pain, denies loss of peripheral vision, denies loss of vision Ears: deny: decreased hearing, ear discharge Ears, nose, mouth and throat: Reports headache, Denies sinus pressure, Denies sore throat Cardiovascular: Denies chest pain, Denies shortness of breath Respiratory: Reports cough, Reports excessive sputum Gastrointestinal: Reports nausea, Reports vomiting, Denies abdominal pain, Denies diarrhea Genitourinary: Denies dysuria, Denies hematuria, Denies stress incontinence, Denies urge incontinence, Denies urgency Musculoskeletal: Denies low back pain, Denies myalgias, Denies neck pain Integumentary: Denies pruritus, Denies rash Neurological: Reports as per HPI, Denies paralysis, Denies vertigo, Denies weakness Psychiatric: Denies anxiety, Denies depression Endocrine: Reports fatigue, Reports weight change Hematologic/Lymphatic: Denies easy bleeding, Denies easy bruising Past Medical History Past Medical History: Hypertension Additional Past Medical History / Comment(s): HTN, Gestational DM, WITH History of Any Multi-Drug Resistant Organisms: None Reported Past Surgical History: Cholecystectomy, Tubal Ligation Additional Past Surgical History / Comment(s): ORAL SURGERY, LAPROSCOPIC CYSTS REMOVAL FROM OVARIES Past Psychological History: No Psychological Hx Reported Past Alcohol Use History: Occasional Past Drug Use History: None Reported Medications and Allergies Home Medications Medication Instructions Recorded Confirmed Type Multivitamins, Thera [Multivitamin 1 tab PO DAILY 10/02/23 10/02/23 History (formulary)] cloNIDine HCL [Catapres] 0.2 mg PO BID 10/02/23 10/02/23 History Allergies Allergy/AdvReac Type Severity Reaction Status Date / Time amoxicillin [From Augmentin] Allergy Anaphylaxis Verified 10/02/23 18:24 clavulanic acid Allergy Anaphylaxis Verified 10/02/23 18:24 [From Augmentin] fish oil Allergy Anaphylaxis Verified 10/02/23 18:24 iodine Allergy Anaphylaxis Verified 10/02/23 18:24 povidone-iodine Allergy Anaphylaxis Verified 10/02/23 18:24 [From Betadine] shellfish derived [Shellfish] Allergy Anaphylaxis Verified 10/02/23 18:24 soap [From Betadine] Allergy Anaphylaxis Verified 10/02/23 18:24 Physical Examination - Vital Signs Vital Signs: Vital Signs Temp Pulse Resp BP BP BP BP 10/03/23 10:12 161/97 157/94 155/88 10/03/23 09:00 96 17 160/81 10/03/23 07:48 92 18 202/111 10/03/23 06:30 80 17 161/95 10/03/23 06:11 75 17 161/95 10/03/23 05:30 86 17 190/104 10/03/23 05:05 81 19 190/104 10/03/23 04:30 106 H 19 175/99 10/03/23 04:15 89 20 174/92 10/03/23 04:10 76 17 174/92 10/03/23 03:30 70 18 188/123 10/03/23 02:30 64 17 180/99 10/03/23 02:19 66 17 180/99 10/03/23 01:30 71 17 200/128 10/03/23 01:09 73 18 200/128 10/03/23 00:02 72 20 184/124 10/03/23 00:00 73 17 216/115 10/02/23 23:30 98 17 209/117 10/02/23 23:00 87 18 209/105 10/02/23 22:30 76 17 218/117 10/02/23 22:05 74 17 218/117 10/02/23 22:00 73 18 211/111 10/02/23 21:30 66 17 214/113 10/02/23 20:30 70 16 224/109 10/02/23 20:00 72 17 231/127 10/02/23 19:30 74 18 213/129 10/02/23 19:24 72 18 245/144 10/02/23 18:05 98.1 F 85 17 230/134 10/02/23 17:10 96 18 221/126 10/02/23 16:20 98.6 F 101 H 18 237/132 10/02/23 14:32 98.0 F 128 H 18 232/138 Pulse Ox 10/03/23 10:12 10/03/23 09:00 95 10/03/23 07:48 97 10/03/23 06:30 95 10/03/23 06:11 95 10/03/23 05:30 95 10/03/23 05:05 95 10/03/23 04:30 98 10/03/23 04:15 97 10/03/23 04:10 95 10/03/23 03:30 95 10/03/23 02:30 95 10/03/23 02:19 95 10/03/23 01:30 96 10/03/23 01:09 95 10/03/23 00:02 95 10/03/23 00:00 97 10/02/23 23:30 97 10/02/23 23:00 97 10/02/23 22:30 96 10/02/23 22:05 95 10/02/23 22:00 95 10/02/23 21:30 95 10/02/23 20:30 96 10/02/23 20:00 95 10/02/23 19:30 97 10/02/23 19:24 97 10/02/23 18:05 96 10/02/23 17:10 96 10/02/23 16:20 98 10/02/23 14:32 98 Patient is a middle aged female, in no acute distress. Patient is alert awake oriented to time place and person. Speech and language functions are normal. Patient can name and repeat very well. No aphasia or dysarthria. Attention, concentration and fund of knowledge is adequate. On cranial nerve examination, pupils are equal, round and reacting to light, visual mckeon are full on confrontation, with no neglect on double simultaneous stimulation. Her visual acuity appears fairly normal in both eyes although the Snellen chart use was on the cell phone and the examination overall was not accurate. Extraocular muscles are intact with no nystagmus. Patient has slight asymmetry of the left lower lip which is droopy, but patient states it is congenital. Her tongue protrudes to the midline. Palatal elevation and sensation normal, hearing and shoulder shrug normal, facial sensation normal. On muscle strength testing, there is no pronator drift and the strength is normal in arms and legs distally and proximally. Deep tendon reflexes are symmetric 2 all over and plantars downgoing bilaterally Sensory to touch is equal with no neglect on double simultaneous stimulation. Cerebellar function showed no ataxia for [id number] testing. No dysdiadochokinesia. No ataxia for vibx-[id number]-youz testing on either side. Tone and bulk of muscles normal. Gait deferred.. On general examination, there is no carotid bruit or murmur, S1-S2 audible. Chest is clear on consultation. Abdomen is soft nontender. No organomegaly, bowel sounds present. Peripheral pulses are present. No peripheral edema. Results - Laboratory Findings CBC and BMP: 12/14/23 08:39 10/03/23 07:19 Abnormal Lab Findings: Abnormal Labs 10/02/23 10/03/23 10/03/23 16:14 07:19 07:19 WBC 13.8 H Neutrophils # 11.7 H Carbon Dioxide 21 L BUN 18 H Creatinine 0.45 L Glucose 144 H ALT 37 H Assessment and Plan Assessment: * Blurred vision left eye, headaches dizziness for last few days. Patient states her special collections librarian told her that she has "bleed behind the optic nerve in the left eye". Patient has uncontrolled hypertension, could be related to hypertensive retinopathy. Painting Contractor recommended an MRI of the brain. Rule out PRES. * Chronic headaches, blurred vision, with CT head showing empty sella, rule out pseudotumor cerebri * Hypertension, accelerated, uncontrolled * Obesity Plan: * MRI of the orbits with and without contrast to rule out disc edema, structural abnormality, rule out CVA * MRV head rule out venous sinus thrombosis * 2-D echo. Cardiology on board. * Hemoglobin A1c, lipid panel, ESR, CRP * Await ophthalmology consultation * Treatment of uncontrolled blood pressure as per cardiology. * I would avoid antiplatelet medication because of report of "bleed behind the left optic nerve", unless cleared by ophthalmology. * If the MRI/MRV are negative, we will consider lumbar puncture to check for opening pressure, rule out pseudotumor cerebri. * Neurology will follow. Discussed with primary team. Thank you for the cameron lacy.
[2023-10-04 09:24] LABS: ALT 39 U/L (4-34); AST 34 U/L (14-36); African American GFR (CKD) >90 (>60 ml/min/1.73 sqM); Albumin 4.2 g/dL (3.5-5.0); Alkaline Phosphatase 64 U/L (38-126); Anion Gap 12 mmol/L; Blood Urea Nitrogen 15 mg/dL (7-17); Calcium 9.3 mg/dL (8.4-10.2); Carbon Dioxide 21 mmol/L (22-30); Chloride 105 mmol/L (98-107); Glucose 101 mg/dL (74-99); Magnesium 2.1 mg/dL (1.6-2.3); Non-African American GFR(CKD) >90 (>60 ml/min/1.73 sqM); Potassium 3.8 mmol/L (3.5-5.1); Sodium 138 mmol/L (137-145); Total Bilirubin 0.8 mg/dL (0.2-1.3); Total Protein 7.2 g/dL (6.3-8.2)
[2023-10-04] MEDS: PANTOPRAZOLE 40 MG/10 ML VIAL IVP SCH ×2 (09:35→20:37)
[2023-10-04] MEDS ORDERED: hydrALAZINE HCL 20 MG/ML 1 ML VIAL IVP STA (09:54)
--- NOTE | 2023-10-04 10:02 | CA ---
Transthoracic Echo Report Name: Evelio Stearns Age: 42 Gender: F : 1980 Exam Date: 10/03/2023 15:19 Exam Location: [facility] Ht (in): 61 Wt (lb): 187 Ordering Physician: Kalpana Rascon Attending/Referring Phys: [id number], Abiodun Investment Executive Deejay Ellington Procedure CPT: Indications: LV function Cardiac Hx: Technical Quality: Fair Contrast 1: Total Dose (mL): Contrast 2: Total Dose (mL): MEASUREMENTS (Male / Female) Normal Values 2D ECHO LV Diastolic Diameter PLAX 4.0 cm 4.2 - 5.9 / 3.9 - 5.3 cm LV Systolic Diameter PLAX 2.6 cm IVS Diastolic Thickness 1.4 cm 0.6 - 1.0 / 0.6 - 0.9 cm LVPW Diastolic Thickness 1.1 cm 0.6 - 1.0 / 0.6 - 0.9 cm LV Relative Wall Thickness 0.6 RV Internal Dim ED PLAX 2.4 cm LVOT Diameter 2.0 cm Aortic Root Diameter 2.7 cm LA Systolic Diameter LX 2.4 cm 3.0 - 4.0 / 2.7 - 3.8 cm LV Diastolic Volume MOD 4C 44.1 cm??? LV Systolic Volume MOD 4C 21.9 cm??? LV Ejection Fraction MOD 4C 50.4 % LV Cardiac Index MOD 4C 1150.4 cm???/min???m??? LV Diastolic Length 4C 6.5 cm LV Systolic Length 4C 6.0 cm Ascending Aorta Diameter 2.7 cm DOPPLER AV Peak Velocity 183.8 cm/s AV Peak Gradient 13.5 mmHg LVOT Peak Velocity 101.4 cm/s LVOT Peak Gradient 4.1 mmHg LVOT Velocity Time Integral 20.8 cm LVOT Stroke Volume 62.4 cm??? LVOT Stroke Volume Index 34.0 ml/m??? LVOT Cardiac Index 3230.8 cm???/min???m??? AV Area Cont Eq pk 1.7 cm??? MV Peak Velocity 164.2 cm/s MV Peak Gradient 10.8 mmHg MV Mean Velocity 76.3 cm/s MV Mean Gradient 3.0 mmHg MV Velocity Time Integral 35.6 cm MR Peak Velocity 425.5 cm/s MR Peak Gradient 72.4 mmHg Mitral E Point Velocity 95.5 cm/s Mitral A Point Velocity 129.4 cm/s Mitral E to A Ratio 0.7 MV Deceleration Time 260.4 ms MV E' Velocity 9.2 cm/s Mitral E to MV E' Ratio 10.4 TR Peak Velocity 236.7 cm/s TR Peak Gradient 22.4 mmHg Right Ventricular Systolic Press 27.4 mmHg PV Peak Velocity 134.4 cm/s PV Peak Gradient 7.2 mmHg FINDINGS Left Ventricle Normal LVsize. Moderate concentric LVH. Left ventricular ejection fraction is estimated at 60-65 %. Right Ventricle Normal right ventricular size. RVSP= 27mmHg. Right Atrium Normal right atrial size. Left Atrium Normal left atrial size. Mitral Valve Structurally normal mitral valve. Mild MR. Aortic Valve Trileaflet aortic valve. No aortic stenosis. No aortic regurgitation. Tricuspid Valve Tricuspid valve not well visualized. Mild TR. Pulmonic Valve Pulmonic valve not well visualized. No pulmonic regurgitation. Pericardium No pericardial effusion Aorta Normal size aortic root and proximal ascending aorta. CONCLUSIONS LVEF estimated at 60% Moderate concentric LVH No obvious regional wall motion abnormality Mild MR and mild TR. RVSP estimated at 27 mmHg. No pericardial effusion. Previewed by: Dr Nhan Yates (Electronically Signed) Final Date: 04 October 2023 10:01
[2023-10-04] MEDS ORDERED: ALPRAZolam 0.5 MG TAB PO PRN (10:38)
[2023-10-04] MEDS: SPIRONOLACTONE 25 MG TAB PO SCH (12:16)
--- NOTE | 2023-10-04 13:58 | P.PN ---
Subjective HISTORY OF PRESENT ILLNESS: This is a 42-year-old female with a past medical history significant for hypertension. Patient sees a bagger and stock handler helper out of [place]. She states she is on a waiting list to get a second appointment from a different bagger and stock handler helper. We have been asked to see the patient in consultation for hypertension. Patient examined at the bedside in the ER. Patient was at her PCP office yesterday secondary to worsening blurry vision. She had recently seen an career education teacher and was scheduled for MRI on an outpatient basis. She was sent into the hospital by her PCP for further evaluation. Patient was found to have extremely elevated blood pressures upon arrival to the hospital with a reading of 232/138. She was started on lisinopril. Blood pressure currently 160s/80s. The patient reports she feels sick from the blood pressure medication she has received while in the hospital. She reports a headache at the time of examination. She also reports dizziness. Patient states her blood pressure at home usually runs 250s/130s. She states she has been on numerous medications and does not tolerate them including lisinopril, carvedilol, amlodipine, chlorthalidone, HCTZ. She does not believe she has been on Aldactone previously. * EKG not available at the time of this dictation. Bedside telemetry reveals sinus mechanism. * Current home cardiac medications include Catapres 0.2mg twice a day * No previous echocardiogram or cardiac catheterization available on EMR for review 10/04/2023 Patient examined this morning at the bedside. Patient currently denies chest pain or pressure. She denies shortness of breath. She reports a headache today. Echocardiogram completed revealing ejection fraction 60%, moderate concentric LVH, no obvious regional wall motion abnormalities, mild MR, mild TR. Patient underwent carotid Doppler revealing increased velocity of bilateral internal carotid arteries with no obvious plaques identified. She's been evaluated by neurology and is scheduled to undergo MRI today. Records obtained from patient's previous bagger and stock handler helper. Patient underwent renal artery Doppler which was negative for renal artery stenosis. PHYSICAL EXAM: VITAL SIGNS: Reviewed. GENERAL: Well-developed in no acute distress. HEENT: Head is normocephalic. Pupils are equal, round. Sclerae anicteric. Mucous membranes of the mouth are moist. Neck supple. No JVD or thyromegaly LUNGS: Respirations even and unlabored. Lungs essentially clear to auscultation bilaterally. HEART: Regular rate and rhythm. S1 and S2 heard. ABDOMEN: Soft. Nondistended. Nontender. EXTREMITIES: Normal range of motion. No clubbing or cyanosis. Peripheral pulses intact. No lower extremity edema NEUROLOGIC: Awake and alert. Oriented x 3. ASSESSMENT: Blurred vision Bleeding behind left optic nerve, per patient, scheduled for outpatient MRI Headache Hypertensive emergency Morbid obesity: BMI 35.3 PLAN: Continue current dose of lisinopril Add Aldactone 25 mg daily No other additions to BP medications at this time UNLESS APPROVED BY CARDIOLOGY Allow BP to come down slowly as she is very symptomatic with BP decreasing rapi dly. Attempt to keep SBP around 170-180 for today. Do not resume clonidine at this time Discontinue IV PRN antihypertensive medications as this makes it difficult to determine appropriate oral antihypertensive regimen Continue to monitor blood pressure Further recommendations pending patient's course Nurse practitioner note has been reviewed by physician. Signing provider agrees with the documented findings, assessment, and plan of care. Objective - Vital Signs Vital signs: Vital Signs Temp 98.3 F 10/04/23 04:00 Pulse 110 H 10/04/23 04:00 Resp 16 10/04/23 04:00 BP 188/94 10/04/23 04:00 Pulse Ox 96 10/04/23 04:00 FiO2 Intake & Output 10/03/23 10/04/23 10/04/23 18:59 06:59 18:59 Intake Total 240 Balance 240 Intake: Oral 240 Other: # Voids 1 - Labs CBC & Chem 7: 10/04/23 08:39 10/04/23 08:39
[2023-10-04 15:43] LABS: Chol/HDL Ratio 4.42 Ratio; LDL Cholesterol,Calculated 130.3 mg/dL (0.0-131.0)
--- NOTE | 2023-10-04 15:55 | MR ---
EXAMINATION TYPE: MR venography head wo con DATE OF EXAM: 10/04/2023 3:07 PM CLINICAL INDICATION:Female, 42 years old with history of Cephalgia, visual disturbance, ?sinus thromb us; PHH, LEFT VISUAL DISTURBANCE, CEPHALGIA, SINUS THROMBUS? COMPARISON: MR brain same day, CT brain 10/02/2023. TECHNIQUE: MRV of the brain was performed utilizing two-dimensional [id number] technique. FINDINGS: Suboptimal evaluation of the transverse sinuses with dominant right and atrophic left transverse sinu s. There is suspected arachnoid granulation within the right transverse sinus. There is narrowing of the left transverse sinus near the sigmoid sinus. There is no evidence of venous occlusion or collate ral circulation. There is no evidence of sinus thrombosis. Flattened appearance of the pituitary gla nd with posterior bright T1 are identified. IMPRESSION: No evidence of venous sinus thrombosis.
--- NOTE | 2023-10-04 16:25 | MR ---
EXAMINATION TYPE: MR orbits wo/w con DATE OF EXAM: 10/04/2023 3:10 PM CLINICAL INDICATION:Female, 42 years old with history of Left visual disturbance; PHH, LEFT VISUAL DI STURBANCE, CEPHALGIA, SINUS THROMBUS? COMPARISON: MRV. TECHNIQUE: Multi planar, multi sequence imaging was performed through the orbits/face. Post contrast imaging was performed after the administration of 8ML cc of Gadavist intravenously. FINDINGS, ORBITS: The globes appear symmetrical. Signal intensity of the globes and optic nerves ar e within normal limits. The intraorbital fat appears preserved. Both lacrimal glands are unremarkab le. The extraocular muscles appear symmetric. After administration of contrast, no abnormal enhanceme nt is seen. The sella is identified and flattened in appearance with posterior right T1 spot present The caraballo-white junctions, ventricular system, and cisterns do appear unremarkable. Diffusion-weighte d imaging shows no evidence of restricted diffusion. Cavernous sinus is within normal limits. The ve nous sinuses have appropriate signal with arachnoid granulation in the right. There is a right and at rophic left transverse venous sinus. After administration of contrast, no abnormal enhancement is see n within the brain. The bone marrow signal is within normal limits. Paranasal sinuses and mastoid air cells: No significant paranasal sinus disease. Visualized orbits: Orbital contents are intact. IMPRESSION: 1. No evidence of intraorbital mass or significant abnormality. No evidence for venous sinus thrombo sis. 2. No evidence of intracranial mass nor acute/subacute CVA accident.
--- NOTE | 2023-10-04 23:49 | P.PN ---
Subjective Progress Note Date: 10/04/23 This is a 42-year-old female who presented to the emergency department with severe headache uncontrolled hypertension with hypertension urgency sent from primary care provider Dr. Putnam's office after being seen and evaluated by Jase aguilera as well as Dr. Mcnamara with concerns of possible hemorrhage behind the optic nerve. Ophthalmology did order MRI that was scheduled to be on October 12 although patient continues to have severe symptoms including blurry vision on the left and difficulty managing blood pressure. Patient was seen and evaluated by cardiology making adjustments to medications as patient was extremely hypertensive with a blood pressure of 200 systolic on admission. Patient has past medical history of hypertension with gestational diabetes and uncontrolled blood pressures even during for the last 5 years. Patient denies any tobacco use or alcohol use and reports she did attempt a marijuana currently to help control the headache although was ineffective. Patient denies any history of CVA or TIA and underwent CT brain which showed no acute evidence of intracranial hemorrhage or acute ischemic changes or mass masslike effect or extra-axial fluid collection. There is no hydrocephalus and no midline shift and there is an incidental empty sella with leftward nasal septal deviation and pseudotumor cerebri is within the differential. Cardiology was consulted as well as neurology. Patient continues to have severe nausea unable to tolerate oral intake and will make adjustments to medications. 10/04/2023 Patient seen and evaluated in follow-up this morning currently with cardiology as well as neurology following. Patient scheduled to undergo MRI of the brain along with venogram as patient continues to have visual disturbance on the left eye along with significant swelling and headache. Patient reports that she has been having ongoing blood pressure control issues over the last 6 years and nothing is working. Cardiology following outpatient and has tried multiple medications with no significant control and the blood pressure. Patient is reporting that all medications including anti-nausea medications and pain medications are making her symptoms worse and has been refusing to take any medications. Patient is currently afebrile with no reported chest pain or shortness of breath. Patient continues on lisinopril twice daily per cardiology recommendations and instructed not to adjust other medications and only speak cardiology in regards to this prior to making any adjustments. Neuro following awaiting MRI and discussing possible LP to assess opening pressures. Review of systems: Constitutional: No reports of fatigue, fever, or chills Cardiovascular: No reports of chest pain or palpitations Respiratory: No reports of shortness of breath or cough GI: reports of extreme nausea, vomiting, no diarrhea : No reports of dysuria or retention Neurovascular: No reports of weakness or numbness, reports continued visual dis turbances and left eye blurry vision All medications have been reviewed PHYSICAL EXAMINATION: GENERAL: The patient is alert and oriented x4, Well developed, well nourished. Obese HEENT: Pupils are round and equally reacting to light. EOMI. no scleral icterus. No conjunctival pallor. Normocephalic, atraumatic. No pharyngeal erythema. No thyromegaly. Patient does experience photosensitivity CARDIOVASCULAR: S1 and S2 muffled PULMONARY: diminished breath sounds bilaterally otherwise clear to auscultation with no wheezing or rhonchi noted. ABDOMEN: soft. Nontender on exam. obese. non-distended, normoactive bowel sounds. No palpable organomegaly. MUSCULOSKELETAL: No joint swelling or deformity. EXTREMITIES: No cyanosis, clubbing, or pedal edema. NEUROLOGICAL: Gross neurological examination did not reveal any focal deficits. Diffuse weakness SKIN: No rashes. Assessment: Visual disturbances including left-sided blurry vision with concerns of possible behind the optic nerve bleeding as noted by ophthalmology outpatient Dr. Mcnamara Concerns of possible pseudotumor cerebri as noted on CT Elevated pressures of the left eye with edema Hypertension with hypertensive urgency, present on admission, uncontrolled blood pressure History of gestational diabetes Obesity with BMI 35.3 Patient reported history of migraines GI prophylaxis DVT prophylaxis Full code Plan: Recommend to continue with current medications and management cardiology and neurology following. Patient was seen and evaluated by cardiology making adjustments to medications and patient has been placed back on lisinopril. Cardiology recommending monitoring blood pressure and monitoring for any hypotension and does not want blood pressures to fall below 160 systolic. Cardiology only at this time to be adjusting medications. Carotid Dopplers were also obtained showing moderate increased velocity of b ilateral internal carotid arteries be compatible with approximately 50-69% of narrowing obvious plaques are done a fight and to consider CTA for additional evaluation is required Neurology consulted and following awaiting MRI is scheduled for today and discussing possible LP. Patient was seen and evaluated by ophthalmology Dr. Mcnamara outpatient and had a scheduled MRI due to concerns for possible bleeding behind the optic nerve on the left which was scheduled for October 12 although patient continued having worsening visual symptoms and uncontrolled hypertension with nausea and vomiting and visual disturbances. Patient was seen by primary care provider and instructed to come to the ER for further evaluation Patient continues with extreme nausea and inability to tolerate oral intake and will continue antinausea medications. Patient is reporting all medications are causing her to feel extremely nauseated and has been refusing medications. Continue Protonix twice daily although patient is refusing this as well. Await MRI and discuss further with cardiology as well as neurology about LP and blood pressure management The impression and plan of care has been dictated by Hazel Dodge, nurse practitioner as directed. Dr. Nia MD I have performed a history and examination and MDM of this patient, discussed the same with the dictator, and agree with the dictator's assessment and plan as written ,documented as a scribe. Based on total visit time, I have performed more than 50% of the visit. Any additional findings or plans will be noted. Objective - Vital Signs Vital signs: Vital Signs Temp 97.8 F 10/04/23 20:00 Pulse 103 H 10/04/23 20:00 Resp 16 10/04/23 20:00 BP 198/124 10/04/23 22:00 Pulse Ox 97 10/04/23 20:00 FiO2 Intake & Output 10/04/23 10/04/23 10/05/23 06:59 18:59 06:59 Intake Total 480 250 Balance 480 250 Intake: IV 10 Invasive Line 1 10 Oral 480 240 Other: Voiding Method Toilet Toilet # Voids 1 2 - Labs CBC & Chem 7: 10/04/23 08:39 10/04/23 08:39 Labs: Abnormal Lab Results - Last 24 Hours (Table) 10/04/23 10/04/23 10/04/23 Range/Units 08:39 08:39 09:49 Neutrophils # 7.9 H (1.3-7.7) k/uL ESR 24 H (0-20) mm/Hr Carbon Dioxide 21 L (22-30) mmol/L Creatinine 0.47 L (0.52-1.04) mg/dL Glucose 101 H (74-99) mg/dL ALT 39 H (4-34) U/L C-Reactive Protein (<1.0) mg/dL 10/04/23 Range/Units 09:49 Neutrophils # (1.3-7.7) k/uL ESR (0-20) mm/Hr Carbon Dioxide (22-30) mmol/L Creatinine (0.52-1.04) mg/dL Glucose (74-99) mg/dL ALT (4-34) U/L C-Reactive Protein 1.0 H (<1.0) mg/dL
[2023-10-05] MEDS: SODIUM CHLORIDE 0.9% 1,000 ML IV SCH (05:02)
[2023-10-05] MEDS: SPIRONOLACTONE 25 MG TAB PO SCH (08:19)
[2023-10-05] MEDS: lisinopriL 20 MG TAB PO SCH ×2 (08:19→19:40)
[2023-10-05] MEDS: PANTOPRAZOLE 40 MG/10 ML VIAL IVP SCH ×3 (08:19→19:39)
--- NOTE | 2023-10-05 10:32 | P.PN ---
Subjective Progress Note Date: 10/04/23 Patient was seen for a follow-up. Patient states she is feeling much better. She still has a headache and the cold packs are helping. Other medications make her sick. Patient's blood pressure is running very high, around 210/100. Patient states that her blood pressure has been running very high like this since she had childbirth about 5 or 6 years ago. Her blood pressure and not unusually runs between 180-250 systolic. Patient says that if her blood pressure goes lower than 180, then she starts feeling sick. Her body is now used to having very high blood pressure. Patient says the headaches started just 7 days ago. Her headache is much improved, 03/31 today. Objective - Vital Signs Vital signs: Vital Signs Temp 97.6 F 10/04/23 15:24 Pulse 92 10/04/23 15:24 Resp 16 10/04/23 15:24 BP 202/110 10/04/23 15:24 Pulse Ox 97 10/04/23 15:24 FiO2 Intake & Output 10/03/23 10/04/23 10/04/23 18:59 06:59 18:59 Intake Total 360 Balance 360 Intake: Oral 360 Other: Voiding Method Toilet # Voids 1 2 - Exam Normal. Mental status normal. Strength normal. - Labs CBC & Chem 7: 10/04/23 08:39 10/04/23 08:39 Labs: Abnormal Lab Results - Last 24 Hours (Table) 10/04/23 10/04/23 10/04/23 Range/Units 08:39 08:39 09:49 Neutrophils # 7.9 H (1.3-7.7) k/uL ESR 24 H (0-20) mm/Hr Carbon Dioxide 21 L (22-30) mmol/L Creatinine 0.47 L (0.52-1.04) mg/dL Glucose 101 H (74-99) mg/dL ALT 39 H (4-34) U/L C-Reactive Protein (<1.0) mg/dL 10/04/23 Range/Units 09:49 Neutrophils # (1.3-7.7) k/uL ESR (0-20) mm/Hr Carbon Dioxide (22-30) mmol/L Creatinine (0.52-1.04) mg/dL Glucose (74-99) mg/dL ALT (4-34) U/L C-Reactive Protein 1.0 H (<1.0) mg/dL Assessment and Plan Assessment: * Blurred vision left eye, headaches dizziness for last few days. Patient states her bi solutions architect told her that she has "bleed behind the optic nerve in the left eye". Patient has uncontrolled hypertension, could be related to hypertensive retinopathy. Milk Pasteurizer recommended an MRI of the brain. Rule out PRES. * Chronic headaches, blurred vision, with CT head showing empty sella, rule out pseudotumor cerebri * Hypertension, accelerated, uncontrolled * Obesity Plan: * MRI of the orbits with and without contrast revealed no evidence of intraorbital mass or significant abnormality. No evidence for venous sinus thrombosis. No evidence of intracranial mass or acute/subacute infarct. * MRV head normal and ruled out venous sinus thrombosis. * 2-D echo revealed normal LV EF estimated at 60%. Moderate concentric LVH. No obvious regional wall motion abnormality. Mild MR and mild TR. Left atrial size normal. Cardiology on board. * Hemoglobin A1c 5.6, lipid panel cholesterol 200, LDL 130, HDL 45 and triglycerides 122. We will start Lipitor 40 mg daily to target LDL <70. * ESR borderline 24/20, CRP 1.0/ <1.0 * Await ophthalmology consultation * Patient's most recent blood pressure is 208/115 left arm, and 202/110 in the right arm. Patient states the signal processing engineer felt the blood pressure can go f urther high with a lumbar puncture and did not recommend LP. Patient also declined lumbar puncture at this time. Once the blood pressure comes under control, then we will consider lumbar puncture, and if the headache persists. * Treatment of uncontrolled blood pressure as per cardiology. Consider evaluation for pheochromocytoma. * I would avoid antiplatelet medication because of report of "bleed behind the left optic nerve", unless cleared by ophthalmology.
[2023-10-05] MEDS ORDERED: SPIRONOLACTONE 25 MG TAB PO STA ×2 (12:34→12:36)
--- NOTE | 2023-10-05 12:37 | P.PN ---
Subjective HISTORY OF PRESENT ILLNESS: This is a 42-year-old female with a past medical history significant for hypertension. Patient sees a ship self defense system mk1 operator out of [place]. She states she is on a waiting list to get a second appointment from a different ship self defense system mk[employer] operator. We have been asked to see the patient in consultation for hypertension. Patient examined at the bedside in the ER. Patient was at her PCP office yesterday secondary to worsening blurry vision. She had recently seen an rug dyer helper and was scheduled for MRI on an outpatient basis. She was sent into the hospital by her PCP for further evaluation. Patient was found to have extremely elevated blood pressures upon arrival to the hospital with a reading of 232/138. She was started on lisinopril. Blood pressure currently 160s/80s. The patient reports she feels sick from the blood pressure medication she has received while in the hospital. She reports a headache at the time of examination. She also reports dizziness. Patient states her blood pressure at home usually runs 250s/130s. She states she has been on numerous medications and does not tolerate them including lisinopril, carvedilol, amlodipine, chlorthalidone, HCTZ. She does not believe she has been on Aldactone previously. * EKG not available at the time of this dictation. Bedside telemetry reveals sinus mechanism. * Current home cardiac medications include Catapres 0.2mg twice a day * No previous echocardiogram or cardiac catheterization available on EMR for review 10/04/2023 Patient examined this morning at the bedside. Patient currently denies chest pain or pressure. She denies shortness of breath. She reports a headache today. Echocardiogram completed revealing ejection fraction 60%, moderate concentric LVH, no obvious regional wall motion abnormalities, mild MR, mild TR. Patient underwent carotid Doppler revealing increased velocity of bilateral internal carotid arteries with no obvious plaques identified. She's been evaluated by neurology and is scheduled to undergo MRI today. Records obtained from patient's previous ship self defense system mk1 operator. Patient underwent renal artery Doppler which was negative for renal artery stenosis. 10/05/2023 Patient examined this morning at the bedside. Patient denies chest pain or pressure. She denies shortness of breath. MRI of the head completed revealing no evidence of venous sinus thrombosis, no evidence of intraorbital mass or significant abnormality, no evidence of intracranial mass or acute subacute CVA. Blood pressure this morning 193/133. Overnight patient's blood pressure was 146/88. She reports improvement in her headache this morning. She denies dizziness or lightheadedness. Blood pressure remains elevated. PHYSICAL EXAM: VITAL SIGNS: Reviewed. GENERAL: Well-developed in no acute distress. HEENT: Head is normocephalic. Pupils are equal, round. Sclerae anicteric. Mucous membranes of the mouth are moist. Neck supple. No JVD or thyromegaly LUNGS: Respirations even and unlabored. Lungs essentially clear to auscultation bilaterally. HEART: Regular rate and rhythm. S1 and S2 heard. ABDOMEN: Soft. Nondistended. Nontender. EXTREMITIES: Normal range of motion. No clubbing or cyanosis. Peripheral pulses intact. No lower extremity edema NEUROLOGIC: Awake and alert. Oriented x 3. ASSESSMENT: Blurred vision Bleeding behind left optic nerve, per patient Headache Hypertensive emergency Morbid obesity: BMI 35.3 PLAN: Continue current dose of lisinopril Increase Aldactone to 100 mg daily No other additions to BP medications at this time UNLESS APPROVED BY CARDIOLOGY Allow BP to come down slowly as she is very symptomatic with BP decreasing rapidly Do not resume clonidine at this time Discontinue IV PRN antihypertensive medications as this makes it difficult to determine appropriate oral antihypertensive regimen Continue to monitor blood pressure If SBP remains under 200 and DBP less than 110 she may be discharged Further recommendations pending patient's course Nurse practitioner note has been reviewed by physician. Signing provider agrees with the documented findings, assessment, and plan of care. Objective - Vital Signs Vital signs: Vital Signs Temp 97.8 F 10/05/23 08:00 Pulse 107 H 10/05/23 08:00 Resp 20 10/05/23 08:00 BP 193/133 10/05/23 08:20 Pulse Ox 98 10/05/23 08:00 FiO2 Intake & Output 10/04/23 10/05/23 10/05/23 18:59 06:59 18:59 Intake Total 480 250 Balance 480 250 Intake: IV 10 Invasive Line 1 10 Oral 480 240 Other: Voiding Method Toilet Toilet # Voids 2 3 - Labs CBC & Chem 7: 10/04/23 08:39 10/04/23 08:39 Labs: Abnormal Lab Results - Last 24 Hours (Table) 10/04/23 10/04/23 10/04/23 Range/Units 08:39 08:39 09:49 Neutrophils # 7.9 H (1.3-7.7) k/uL ESR 24 H (0-20) mm/Hr Carbon Dioxide 21 L (22-30) mmol/L Creatinine 0.47 L (0.52-1.04) mg/dL Glucose 101 H (74-99) mg/dL ALT 39 H (4-34) U/L C-Reactive Protein (<1.0) mg/dL 10/04/23 Range/Units 09:49 Neutrophils # (1.3-7.7) k/uL ESR (0-20) mm/Hr Carbon Dioxide (22-30) mmol/L Creatinine (0.52-1.04) mg/dL Glucose (74-99) mg/dL ALT (4-34) U/L C-Reactive Protein 1.0 H (<1.0) mg/dL
[2023-10-05 16:49] VITALS: RESP 16
--- NOTE | 2023-10-05 18:54 | P.PN ---
Subjective Progress Note Date: 10/05/23 09/05/2023: Patient was seen for a follow-up. Patient states her headache is much better, 3-01/29. Patient states the fund raiser has increased her blood pressure medications. She is now on lisinopril 20 mg twice a day, and also on spironolactone 100 mg daily. 09/04/2023: Patient was seen for a follow-up. Patient states she is feeling much better. She still has a headache and the cold packs are helping. Other medications make her sick. Patient's blood pressure is running very high, around 210/100. Patient states that her blood pressure has been running very high like this since she had childbirth about 5 or 6 years ago. Her blood pressure and not unusually runs b etween 180-250 systolic. Patient says that if her blood pressure goes lower than 180, then she starts feeling sick. Her body is now used to having very high blood pressure. Patient says the headaches started just 7 days ago. Her headache is much improved, 03/31 today. Objective - Vital Signs Vital signs: Vital Signs Temp 98 F 10/05/23 12:00 Pulse 106 H 10/05/23 12:00 Resp 20 10/05/23 12:00 BP 189/139 10/05/23 12:00 Pulse Ox 98 10/05/23 12:00 FiO2 Intake & Output 10/04/23 10/05/23 10/05/23 18:59 06:59 18:59 Intake Total 480 250 360 Balance 480 250 360 Intake: IV 10 Invasive Line 1 10 Oral 480 240 360 Other: Voiding Method Toilet Toilet # Voids 2 3 3 - Exam Normal. Mental status normal. Strength normal. Cranial nerves normal. Sensations equal. No ataxia. - Labs CBC & Chem 7: 10/04/23 08:39 10/04/23 08:39 Assessment and Plan Assessment: * Blurred vision left eye, headaches dizziness for last few days. Patient states her casing cleaner told her that she has "bleed behind the optic nerve in the left eye". Patient has uncontrolled hypertension, could be related to hypertensive retinopathy. MRI of the brain negative for an acute stroke. No evidence of PRES * Chronic headaches, blurred vision, with CT head showing empty sella, rule out pseudotumor cerebri * Hypertension, accelerated, uncontrolled * Obesity Plan: * Patient states her headache has much improved. She wants to hold off on lumbar puncture. * MRI of the orbits with and without contrast revealed no evidence of intraorb ital mass or significant abnormality. No evidence for venous sinus thrombosis. No evidence of intracranial mass or acute/subacute infarct. * MRV head normal and ruled out venous sinus thrombosis. * Carotid Doppler revealed moderate increase velocity bilateral ICA can be compatible with an approximately 50-69% narrowing. Obvious plaques are identified. Consider CTA. Patient is ALLERGIC to iodine dye. We will check MRA of the head and neck. * Recommend outpatient endocrinology consultation for empty sella, to rule out hypopituitarism. * 2-D echo revealed normal LV EF estimated at 60%. Moderate concentric LVH. No obvious regional wall motion abnormality. Mild MR and mild TR. Left atrial size normal. * Hemoglobin A1c 5.6, lipid panel cholesterol 200, LDL 130, HDL 45 and triglycerides 122. We will start Lipitor 40 mg daily to target LDL <70. * ESR borderline 24/20, CRP 1.0/ <1.0 * Patient to follow up with casing cleaner outpatient. * Patient's most recent blood pressure is 189/139 and subsequently 191/120. Patient states the fund raiser felt the blood pressure can go further high with a lumbar puncture and did not recommend LP. Patient also declined lumbar puncture at this time. Patient's headaches is improving with improvement in the blood pressure control. Suspect headache may be related to elevated blood pressure. * Treatment of uncontrolled blood pressure as per cardiology. Consider evaluation for pheochromocytoma. * I would avoid antiplatelet medication because of report of "bleed behind the left optic nerve", and uncontrolled blood pressure, unless cleared by ophthalmology.
--- NOTE | 2023-10-05 20:04 | P.PN ---
Subjective Progress Note Date: 10/05/23 This is a 42-year-old female who presented to the emergency department with severe headache uncontrolled hypertension with hypertension urgency sent from primary care provider Dr. Putnam's office after being seen and evaluated by Jase aguilera as well as Dr. Mcnamara with concerns of possible hemorrhage behind the optic nerve. Ophthalmology did order MRI that was scheduled to be on October 12 although patient continues to have severe symptoms including blurry vision on the left and difficulty managing blood pressure. Patient was seen and evaluated by cardiology making adjustments to medications as patient was extremely hypertensive with a blood pressure of 200 systolic on admission. Patient has past medical history of hypertension with gestational diabetes and uncontrolled blood pressures even during for the last 5 years. Patient denies any tobacco use or alcohol use and reports she did attempt a marijuana currently to help control the headache although was ineffective. Patient denies any history of CVA or TIA and underwent CT brain which showed no acute evidence of intracranial hemorrhage or acute ischemic changes or mass masslike effect or extra-axial fluid collection. There is no hydrocephalus and no midline shift and there is an incidental empty sella with leftward nasal septal deviation and pseudotumor cerebri is within the differential. Cardiology was consulted as well as neurology. Patient continues to have severe nausea unable to tolerate oral intake and will make adjustments to medications. 10/04/2023 Patient seen and evaluated in follow-up this morning currently with cardiology as well as neurology following. Patient scheduled to undergo MRI of the brain along with venogram as patient continues to have visual disturbance on the left eye along with significant swelling and headache. Patient reports that she has been having ongoing blood pressure control issues over the last 6 years and nothing is working. Cardiology following outpatient and has tried multiple medications with no significant control and the blood pressure. Patient is reporting that all medications including anti-nausea medications and pain medications are making her symptoms worse and has been refusing to take any medications. Patient is currently afebrile with no reported chest pain or shortness of breath. Patient continues on lisinopril twice daily per cardiology recommendations and instructed not to adjust other medications and only speak cardiology in regards to this prior to making any adjustments. Neuro following awaiting MRI and discussing possible LP to assess opening pressures. 10/05/2023 Patient is seen in follow up today and reports to being frustrated due to feeling that her initial complaint of headache with visual disturbances and possible bleed behind the optic nerve is not being addressed. Cardiology and neurology following and patient underwent MRI of the brain showing no acute process, no mass, no CVA, and no sign of venous thrombosis. Patient being followed by neurology and had suggested possible LP although patient has refused and cardiology recommending against it at this time. Patient to follow up with Dr Mcnamara opthalmology outpatient this week. Cardiology has made adjustments to the blood pressure medication and has increased aldactone to 100mg daily. Continue to monitor overnight with a goal of 180-190 systolic over 110-120 diastolic to be considered for discharge. Patient has been cleared by neurology. Review of systems: Constitutional: No reports of fatigue, fever, or chills Cardiovascular: No reports of chest pain or palpitations Respiratory: No reports of shortness of breath or cough GI: reports of continued nausea, no vomiting, no diarrhea : No reports of dysuria or retention Neurovascular: No reports of weakness or numbness, reports continued visual disturbances and left eye blurry vision, headaches somewhat improved All medications have been reviewed PHYSICAL EXAMINATION: GENERAL: The patient is alert and oriented x4, Well developed, well nourished. Obese HEENT: Pupils are round and equally reacting to light. EOMI. no scleral icterus. Swelling of the left sclera has improved. No conjunctival pallor. Normocephalic, atraumatic. No pharyngeal erythema. No thyromegaly. CARDIOVASCULAR: S1 and S2 muffled PULMONARY: diminished breath sounds bilaterally otherwise clear to auscultation with no wheezing or rhonchi noted. ABDOMEN: soft. Nontender on exam. obese. non-distended, normoactive bowel sounds. No palpable organomegaly. MUSCULOSKELETAL: No joint swelling or deformity. EXTREMITIES: No cyanosis, clubbing, or pedal edema. NEUROLOGICAL: Gross neurological examination did not reveal any focal deficits. SKIN: No rashes. Assessment: Visual disturbances including left-sided blurry vision with concerns of possible behind the optic nerve bleeding as noted by ophthalmology outpatient Dr. Mcnamara Concerns of possible pseudotumor cerebri as noted on CT Elevated pressures of the left eye with edema, improving Hypertension with hypertensive urgency, present on admission, uncontrolled blood pressure History of gestational diabetes Obesity with BMI 35.3 Patient reported history of migraines GI prophylaxis DVT prophylaxis Full code Plan: Recommend to continue with current medications and management cardiology and neurology following. Patient was seen and evaluated by cardiology making adjustments to medications and patient has been placed back on lisinopril. Aldactone added and has been increased to 100mg daily. Cardiology recommending monitoring blood pressure and getting to the goal of 180-190 systolic/ 110-120 diastolic prior to discharge. Carotid Dopplers were also obtained showing moderate increased velocity of bilateral internal carotid arteries be compatible with approximately 50-69% of narrowing obvious plaques are noted. Mri of the brain with no cva noted Patient continues with nausea and headache but feels improved from admission. Monitor overnight with goal of blood pressure readings per cardiology for possible discharge in 24 hours. Patient will need to follow up with Dr. Mcnamara in the outpatient setting once discharged The impression and plan of care has been dictated by Hazel Dodge, nurse practitioner as directed. Dr. Nia MD I have performed a history and examination and MDM of this patient, discussed the same with the dictator, and agree with the dictator's assessment and plan as written ,documented as a scribe. Based on total visit time, I have performed more than 50% of the visit. Any additional findings or plans will be noted. Objective - Vital Signs Vital signs: Vital Signs Temp 98.1 F 10/05/23 16:00 Pulse 82 10/05/23 16:00 Resp 16 10/05/23 16:00 BP 191/120 10/05/23 16:00 Pulse Ox 98 10/05/23 16:00 FiO2 Intake & Output 10/05/23 10/05/23 10/06/23 06:59 18:59 06:59 Intake Total 250 480 Balance 250 480 Intake: IV 10 Invasive Line 1 10 Oral 240 480 Other: Voiding Method Toilet # Voids 3 3 - Labs CBC & Chem 7: 10/04/23 08:39 10/04/23 08:39
[2023-10-05] MEDS ORDERED: ATORVASTATIN 40 MG TAB PO SCH (21:00)
[2023-10-06 03:33] VITALS: TEMP 98
[2023-10-06] MEDS: lisinopriL 20 MG TAB PO SCH (08:20)
[2023-10-06] MEDS: PANTOPRAZOLE 40 MG/10 ML VIAL IVP SCH (08:20)
[2023-10-06 08:33] VITALS: BP 186/110; PULSE 92
[2023-10-06] MEDS ORDERED: SPIRONOLACTONE 25 MG TAB PO SCH ×2 (09:00)
--- NOTE | 2023-10-06 12:54 | MR ---
EXAMINATION TYPE: MR angio head wo/neck wo/w con DATE OF EXAM: 10/06/2023 12:41 PM CLINICAL INDICATION:Female, 42 years old with history of Uncontrolled HTN, GRANADO carotid stenosis r/o Mo yamoya; PHH, Visual disturbance, GRANADO, uncontrolled HTN. COMPARISON: MR brain 10/04/2023, CT 10/02/2023. Technical: MRA brain: 2D and 3-D quko-ix-[id number] Axial with MIP and 3-D reconstruction. Performed on a separate w orkstation. MRA neck: Multiplanar, multi-sequence imaging as well as oekf-wk-mjzipl and phase was performed extra cranial vasculature of the neck. 3-D reformatted images and maximum intensity projection reformatted images were submitted for evaluation, these are performed on a separate workstation. IV Contrast: 8 cc Gadobutrol Findings: Vertebral arteries: The vertebral arteries are patent. Vertebral arteries are: Codominant. Basilar artery: The basilar artery is intact. The basilar artery bifurcation is normal. Internal Carotid arteries: The cervical, petrous, cavernous and supraclinoid segments are normal. MIRI: Patent with no evidence of aneurysm. ACOM: Present without evidence of aneurysm. MCA: Patent with no evidence of aneurysm. EMERGENCY DEPARTMENT CLINICIAN: Patent with no evidence of aneurysm. origin left posterior cerebral artery. PCOM: Hypoplastic right. RIGHT CAROTID SYSTEM: The common carotid artery is patent. The carotid bifurcations demonstrates no e vidence for hemodynamically significant stenosis. The internal carotid artery is patent. LEFT CAROTID SYSTEM: The common carotid artery is patent. The carotid bifurcations demonstrates no e vidence for hemodynamically significant stenosis. The internal carotid artery is patent. The origins of the great vessels and vertebral arteries appear unremarkable. The right vertebral art hitesh is dominant. IMPRESSION: 1. No evidence of intracranial aneurysm or significant stenosis. 2. No evidence of significant stenosis at the carotid bifurcations. The carotid and vertebral arteri es are patent. 3. No evidence aneurysm.
--- NOTE | 2023-10-08 15:43 | P.DS ---
Providers Date of admission: 10/02/23 17:31 Attending physician: Jens Washington Consults: 10/02/23 17:23 Consult Physician Routine Consulting Provider: Yeyo Carroll Consult Reason/Comments: neuro Do you want consulting provider notified?: Yes Consult Physician Routine Consulting Provider: Manfred Villalobos Consult Reason/Comments: HTN Do you want consulting provider notified?: Yes 10/02/23 17:40 Consult Physician Routine Consulting Provider: Rashaad Mcnamara Consult Reason/Comments: blurry vision / known Do you want consulting provider notified?: Yes Primary care physician: Jose Paredes Hospital Course: Final Diagnosis Visual disturbances including left-sided blurry vision with concerns of possible behind the optic nerve bleeding as noted by ophthalmology outpatient Dr. Mcnamara Concerns of possible pseudotumor cerebri as noted on CT Elevated pressures of the left eye with edema, improving Hypertension with hypertensive urgency, present on admission, uncontrolled blood pressure History of gestational diabetes Obesity with BMI 35.3 Patient reported history of migraines Discharge Disposition Patient is stable for discharge home. Reports the blurry vision may be because she needs new glasses. Patient has close follow up with Dr. Mcnamara. Continue to monitor blood pressure and keep log for follow up with PCP. Patient to see Dr Guzmán in the office in 1 to 2 weeks. Patient also needs to see her PCP Dr Jose Paredes in 1 to 2 days. Hospital Course This is a 42-year-old female who presented to the emergency department with severe headache uncontrolled hypertension with hypertension urgency sent from primary care provider Dr. Putnam's office after being seen and evaluated by Jase aguilera as well as Dr. Mcnamara with concerns of possible hemorrhage behind the optic nerve. Ophthalmology did order MRI that was scheduled to be on October 12 although patient continues to have severe symptoms including blurry vision on the left and difficulty managing blood pressure. Patient was seen and evaluated by cardiology making adjustments to medications as patient was extremely hypertensive with a blood pressure of 200 systolic on admission. Patient has past medical history of hypertension with gestational diabetes and uncontrolled blood pressures even during for the last 5 years. Patient denies any tobacco use or alcohol use and reports she did attempt a marijuana currently to help control the headache although was ineffective. Patient denies any history of CVA or TIA and underwent CT brain which showed no acute evidence of intracranial hemorrhage or acute ischemic changes or mass masslike effect or extra-axial fluid collection. There is no hydrocephalus and no midline shift and there is an incidental empty sella with leftward nasal septal deviation and pseudotumor cerebri is within the differential. Cardiology was consulted as well as neurology. patient underwent MRI of the brain showing no acute process, no mass, no CVA, and no sign of venous thrombosis. Patient being followed by neurology and had suggested possible LP although patient has refused and cardiology recommending against it at this time. Patient to follow up with Dr Mcnamara opthalmology outpatient this week. Cardiology has made adjustments to the blood pressure medication and has increased aldactone to 100mg daily. Patient has a goal of 180-190 systolic over 110-120 diastolic to be considered for discharge. Patient has been cleared by neurology. Patient was monitored, symptoms of persistent nausea have improved. Most recent blood pressures 179-117 and 186-110 and has been cleared for discharge by cardiology. Lipid panel was done showing triglycerides of 122, cholesterol 200, LDL 130, HDL 45.30. White count normal 10.4. ESR elevated at 24. No chest pain or shortness of breath, lungs are clear S1 S2 auscultated cleared for discharge. Please see medication reconciliation for a list of current medications. Thank you for allowing us to participate in the care of this patient. The impression and plan of care has been dictated by Jessica Hernández, Nurse Practitioner as directed. Dr. Nia MD I have performed a history and physical examination and medical decision making of this patient, discussed the same with the dictator, and agree with the dictators assessment and plan as written, documented as a scribe. Based on total visit time, I have performed more than 50% of this visit. Patient Condition at Discharge: Fair Plan - Discharge Summary New Discharge Prescriptions: New Spironolactone [Aldactone] 100 mg PO DAILY #30 tab Atorvastatin [Lipitor] 40 mg PO HS #30 tab Famotidine [Pepcid] 20 mg PO DAILY #30 tablet lisinopriL [Zestril] 20 mg PO BID #60 tab Continue Multivitamins, Thera [Multivitamin (formulary)] 1 tab PO DAILY Discontinued cloNIDine HCL [Catapres] 0.2 mg PO BID Discharge Medication List Multivitamins, Thera [Multivitamin (formulary)] 1 tab PO DAILY 10/02/23 [History] Atorvastatin [Lipitor] 40 mg PO HS #30 tab 10/06/23 [Rx] Famotidine [Pepcid] 20 mg PO DAILY #30 tablet 10/06/23 [Rx] Spironolactone [Aldactone] 100 mg PO DAILY #30 tab 10/06/23 [Rx] lisinopriL [Zestril] 20 mg PO BID #60 tab 10/06/23 [Rx] Follow up Appointment(s)/Referral(s): Jose Paredes DO [Primary Care Provider] - 1-2 days Shekhar Guzmán DO [STAFF PHYSICIAN] - 1 Week Rashaad Mcnamara MD [STAFF PHYSICIAN] - 1 Week Ambulatory/Diagnostic Orders: Basic Metabolic Panel [LAB.AMB] Time Frame: 3 Days, Location: None Selected Patient Instructions/Handouts: Chronic Hypertension (DC) Activity/Diet/Wound Care/Special Instructions: Continue to monitor blood pressure and keep log for follow up with PCP See Dr Guzmán in the office in 1 to 2 weeks Follow up with Dr Mcnamara in the office in 1 week Discharge Disposition: HOME SELF-CARE
== END 2023-10-06 13:27 | disposition home or self-care (01) | DRG 58 ==
LOC: EC 14:28 → 3SCARD 17:31 → OBSVTOIN 17:31 → 3SCARD 20:26
PROVIDERS: ADMIT Hospitalist; ATTEND Hospitalist
DX: G93.2 Benign intracranial hypertension (principal); E66.01 Morbid (severe) obesity due to excess calories; H47.022 Hemorrhage in optic nerve sheath, left eye; Z86.32 Personal history of gestational diabetes; Z68.35 Body mass index [BMI] 35.0-35.9, adult; I16.1 Hypertensive emergency; I08.1 Rheumatic disorders of both mitral and tricuspid valves; I65.23 Occlusion and stenosis of bilateral carotid arteries; H53.8 Other visual disturbances; I10 Essential (primary) hypertension; G43.909 Migraine, unspecified, not intractable, without status migrainosus; Z88.8 Allergy status to other drugs, medicaments and biological substances; Z79.899 Other long term (current) drug therapy; Z88.0 Allergy status to penicillin; Z91.013 Allergy to seafood; Z28.310 Unvaccinated for COVID-19; Z28.21 Immunization not carried out because of patient refusal
CPT/HCPCS: 36415; 70450; 70543; 70544; 70549; 80053; 80061; 82088; 83036; 83735; 84100; 84244; 85025; 85610; 85652; 85730; 86140; 93005; 93306; 93880; 96361; 96374; 96375; 96376; 99285

== ENCOUNTER 2024-01-25 15:11 | Emergency (ER) | payer OTHER ==
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
[2024-01-25 15:41] LABS: Basophils % (A) 0 %; Eosinophils # (A) 0.1 k/uL (0-0.7); Eosinophils % (A) 1 %; HCT 43.5 % (34.0-46.0); HGB 14.8 gm/dL (11.4-16.0); Lymphocytes # (A) 1.7 k/uL (1.0-4.8); Lymphocytes % (A) 22 %; MCH 30.4 pg (25.0-35.0); MCV 89.4 fL (80.0-100.0); Mean Platelet Volume 8.9; Monocytes # (A) 0.4 k/uL (0-1.0); Monocytes % (A) 5 %; Neutrophils # (A) 5.4 k/uL (1.3-7.7); Neutrophils % (A) 70 %; Platelet Count 261 k/uL (150-450); RBC 4.86 m/uL (3.80-5.40); RDW 12.9 % (11.5-15.5); WBC 7.6 k/uL (3.8-10.6)
[2024-01-25] MEDS: ACETAMINOPHEN TAB 500 MG TAB PO STA (15:47)
[2024-01-25] MEDS: SODIUM CHLORIDE 0.9% 1,000 ML IV STA (15:47)
[2024-01-25 16:00] LABS: Partial Thromboplastin Time 22.8 sec (22.0-30.0); Prothrombin Time 10.7 sec (10.0-12.5)
[2024-01-25 16:12] VITALS: RESP 18
--- NOTE | 2024-01-25 16:19 | XR ---
EXAMINATION TYPE: XR ankle complete RT DATE OF EXAM: 01/25/2024 COMPARISON: NONE HISTORY: Pain TECHNIQUE: Frontal, lateral and oblique images of the right ankle are obtained. COMPARISON: None. FINDINGS: There is no acute fracture/dislocation evident. The joint spaces appear within normal dozier its. The overlying soft tissue appears unremarkable. IMPRESSION: There is no acute fracture or dislocation seen.
--- NOTE | 2024-01-25 16:21 | XR ---
EXAMINATION TYPE: XR chest 2V DATE OF EXAM: 01/25/2024 COMPARISON: 10/18/2017 HISTORY: Chest pain TECHNIQUE: Frontal and lateral views of the chest are obtained. FINDINGS: There is no focal air space opacity. No evidence for pneumothorax. No pleural effusion. The cardiac silhouette size is within normal limits. The osseous structures are grossly intact. IMPRESSION: 1. No acute cardiopulmonary process.
--- NOTE | 2024-01-25 16:22 | XR ---
EXAMINATION TYPE: XR knee complete LT DATE OF EXAM: 01/25/2024 CLINICAL HISTORY: pain TECHNIQUE: Three views of the left knee are obtained. COMPARISON: None. FINDINGS: There is no acute fracture/dislocation. The tri-compartment joint spaces appear within no rmal limits. Soft tissue lucency infrapatellar region could reflect soft tissue injury. Correlate cli nically. Superior patellar pole spur IMPRESSION: There is no acute fracture or dislocation ICD 10 NO FRACTURE, INITIAL EVALUATION
--- NOTE | 2024-01-25 16:23 | XR ---
EXAMINATION TYPE: XR pelvis AP view DATE OF EXAM: 01/25/2024 CLINICAL HISTORY: pain TECHNIQUE: Single view the pelvis is submitted. FINDINGS: No evidence for fracture, dislocation or bony lesion. Joint spaces are well-preserved. S I joints appear symmetric. IMPRESSION: 1. No acute fracture or dislocation seen. ICD 10 NO FRACTURE, INITIAL EVALUATION
--- NOTE | 2024-01-25 16:28 | XR ---
EXAMINATION TYPE: XR clavicle LT DATE OF EXAM: 01/25/2024 CLINICAL HISTORY: pain COMPARISON: NONE TECHNIQUE: Three views of the left clavicle are obtained. FINDINGS: There is no acute fracture/dislocation evident. The acromioclavicular and glenohumeral daniel int spaces appear within normal limits. The visualized ribs are intact and unremarkable. IMPRESSION: 1. There is no acute fracture or dislocation. ICD 10 NO FRACTURE, INITIAL EVALUATION
[2024-01-25 16:45] LABS: ALT 26 U/L (4-34); AST 24 U/L (14-36); African American GFR (CKD) >90 (>60 ml/min/1.73 sqM); Albumin 4.4 g/dL (3.5-5.0); Alcohol <10 mg/dL; Alkaline Phosphatase 68 U/L (38-126); Anion Gap 13 mmol/L; Blood Urea Nitrogen 13 mg/dL (7-17); Calcium 9.8 mg/dL (8.4-10.2); Carbon Dioxide 17 mmol/L (22-30); Chloride 108 mmol/L (98-107); Glucose 149 mg/dL (74-99); Non-African American GFR(CKD) >90 (>60 ml/min/1.73 sqM); Potassium 3.8 mmol/L (3.5-5.1); Sodium 138 mmol/L (137-145); Total Bilirubin 0.4 mg/dL (0.2-1.3); Total Protein 7.4 g/dL (6.3-8.2)
[2024-01-25] MEDS: MORPHINE SULFATE 2 MG/ML SYRINGE IVP ONE (17:23)
[2024-01-25] MEDS: ONDANSETRON 4 MG/2 ML VIAL IVP STA (17:23)
[2024-01-25] MEDS: LIDOCAINE 1% INJ 10MG/ML (20 ML MDV) SQ ONE (17:23)
[2024-01-25 18:39] VITALS: BP 145/102; PULSE 75; TEMP 98.1
== END 2024-01-25 18:33 | disposition home or self-care (01) ==
LOC: EC 15:11
DX: S81.012A Laceration without foreign body, left knee, initial encounter (principal); S93.401A Sprain of unspecified ligament of right ankle, initial encounter; Z88.0 Allergy status to penicillin; Z91.041 Radiographic dye allergy status; Z91.013 Allergy to seafood; Z88.8 Allergy status to other drugs, medicaments and biological substances; Z88.1 Allergy status to other antibiotic agents; V43.52XA Car driver injured in collision with other type car in traffic accident, initial encounter; Y92.410 Unspecified street and highway as the place of occurrence of the external cause
CPT/HCPCS: 36415; 86900; 86901; 80053; 85025; 85610; 85730; 86850; 80320; 72170; 73000; 73562; 73610; 71046; 12001; 99285; 96374; 96375; 96361; L4350; J2405; J2001; J2270

== ENCOUNTER → 2024-02-22 | Outpatient (CLI) | payer OTHER ==
[2024-02-22 15:04] LABS: ALT 24 U/L (8-44); AST 18 U/L (13-35); Albumin 4.7 g/dL (3.8-4.9); Albumin/Globulin Ratio 1.68 Ratio (1.60-3.17); Alkaline Phosphatase 59 U/L (41-126); Blood Urea Nitrogen 14.7 mg/dL (9.0-27.0); Calcium 9.6 mg/dL (8.7-10.3); Carbon Dioxide 20.7 mmol/L (21.6-31.8); Chloride 106 mmol/L (96-109); Chol/HDL Ratio 4.99 Ratio; Globulin 2.8 g/dL (1.6-3.3); Glucose 114 mg/dL (70-110); LDL Cholesterol,Calculated 162.7 mg/dL (0.0-131.0); Potassium 4.5 mmol/L (3.5-5.5); Sodium 138 mmol/L (135-145); T4, Free (Free Thyroxine) 1.13 ng/dL (0.80-1.80); Testosterone <10.00 ng/dL (9.01-47.94); Total Bilirubin 0.3 mg/dL (0.3-1.2); Total Protein 7.5 g/dL (6.2-8.2); VLDL Calculation 15.62 mg/dL (5.00-40.00)
[2024-02-22 19:44] LABS: Follicle Stimulating Hormone 24.6 mIU/mL
[2024-02-22 19:45] LABS: Luteinizing Hormone 17.5 mIU/mL
[2024-02-22 21:32] LABS: ACTH <1.50 pg/mL (0.00-45.99)
== END | disposition home or self-care (01) ==
LOC: LABWHC1 07:56
PROVIDERS: ATTEND Internal Medicine Endocrinology, Diabetes & Metabolism
DX: E34.9 Endocrine disorder, unspecified (principal)
CPT/HCPCS: 36415; 80053; 80061; 82024; 82306; 82533; 82626; 82627; 83001; 83002; 83036; 84146; 84270; 84305; 84403; 84439; 84443; 84480

== ENCOUNTER → 2024-08-20 | Outpatient (CLI) | payer OTHER ==
[2024-08-20 19:38] LABS: Blood Urea Nitrogen 10.3 mg/dL (9.0-27.0); Chol/HDL Ratio 4.99 Ratio; Glucose 77 mg/dL (70-110); VLDL Calculation 19.54 mg/dL (5.00-40.00)
[2024-08-20 19:39] LABS: ALT 21 U/L (8-44); AST 21 U/L (13-35); Albumin 4.5 g/dL (3.8-4.9); Albumin/Globulin Ratio 1.73 Ratio (1.60-3.17); Alkaline Phosphatase 52 U/L (41-126); Calcium 9.6 mg/dL (8.7-10.3); Carbon Dioxide 21.8 mmol/L (21.6-31.8); Chloride 103 mmol/L (96-109); Globulin 2.6 g/dL (1.6-3.3); Sodium 140 mmol/L (135-145); T4, Free (Free Thyroxine) 1.15 ng/dL (0.80-1.80); Total Bilirubin 0.5 mg/dL (0.3-1.2); Total Protein 7.1 g/dL (6.2-8.2)
== END | disposition home or self-care (01) ==
LOC: LABWHC1 13:00
PROVIDERS: ATTEND Internal Medicine Endocrinology, Diabetes & Metabolism
DX: E23.7 Disorder of pituitary gland, unspecified (principal)
CPT/HCPCS: 36415; 80053; 80061; 82306; 82626; 82627; 82671; 83001; 83036; 84146; 84305; 84439; 84443; 84480

== ENCOUNTER → 2025-01-19 | Outpatient (CLI) | payer OTHER ==
[2025-01-19 18:38] LABS: HCT 39.9 % (37.2-46.3); HGB 13.4 g/dL (12.0-15.0); MCH 30.1 pg (27.0-32.0); MCHC 33.6 g/dL (32.0-37.0); MCV 89.7 FL (80.0-97.0); Mean Platelet Volume 11.9 FL (9.5-12.2); NRBC Per 100 WBC 0 X 10*3/uL (0.00-0.01); Platelet Count 244 X 10*3/uL (140-440); RBC 4.45 X 10*6/uL (4.10-5.20); RDW 12.8 % (11.5-14.5); WBC 4.04 X 10*3/uL (4.50-10.00)
[2025-01-19 19:14] LABS: % Iron Saturation 17.23 (12.00-45.00); Ferritin 44.5 ng/mL (10.0-291.0); T4, Free (Free Thyroxine) 1.08 ng/dL (0.80-1.80)
[2025-01-19 22:06] LABS: Thyroid Peroxidase Antibodies 13.3 U/mL (0.0-33.0)
[2025-01-20 08:30] LABS: Zinc, Serum 72 ug/dL (60-130)
== END | disposition home or self-care (01) ==
LOC: LABWHC1 13:23
PROVIDERS: ATTEND Physician Assistant
DX: L65.9 Nonscarring hair loss, unspecified (principal); L57.0 Actinic keratosis; E55.9 Vitamin D deficiency, unspecified; B07.8 Other viral warts; L53.8 Other specified erythematous conditions; L29.89 Other pruritus; L08.89 Other specified local infections of the skin and subcutaneous tissue; R23.8 Other skin changes; X32.XXXA Exposure to sunlight, initial encounter
CPT/HCPCS: 36415; 82040; 82157; 82306; 82607; 82627; 82728; 82746; 83540; 83550; 84270; 84403; 84439; 84443; 84630; 85027; 86038; 86376